=== PATIENT | male | born 1990 ===

== ENCOUNTER 2017-03-19 15:33 | Emergency (ER) | payer SELFPAY ==
[2017-03-19 15:41] VITALS: RESP 20; TEMP 98.3; O2SAT 98
[2017-03-19] MEDS ORDERED: Phenylephrine 1% Nasal Spray (15 ml) NAS STA (17:06)
[2017-03-19] MEDS ORDERED: Phenylephrine 1% Nasal Spray (15 ml) ONE (17:11)
[2017-03-19 17:17] LABS: BASO % 0.7 % (0.0-2.0); EOS % 0.1 % (0.0-4.0); HEMATOCRIT 42.8 % (35.0-51.0); LYMPH # 0.7 K/uL (1.0-4.3); LYMPH % 10.8 % (20.0-40.0); MEAN CELL VOLUME 91.6 fL (80.0-94.0); MEAN CORPUSCULAR HEMOGLOBIN 32.5 pg (27.0-31.0); MEAN CORPUSCULAR HGB CONC 35.5 g/dL (33.0-37.0); MEAN PLATELET VOLUME 7.9 fL (7.2-11.7); MONO # 0.3 K/uL (0.0-0.8); MONO % 4.4 % (0.0-10.0); RED CELL DISTRIBUTION WIDTH 13.2 % (11.5-14.5); WHITE BLOOD COUNT 6.4 K/uL (4.8-10.8)
[2017-03-19 17:26] LABS: INR 0.9
[2017-03-19 17:28] LABS: ALB/GLOB RATIO 1.9 (1.0-2.1); ALKALINE PHOSPHATASE 92 U/L (38-126); ALT/SGPT 210 U/L (21-72); AST/SGOT 228 U/L (17-59); BILIRUBIN,TOTAL 1.2 mg/dL (0.2-1.3); BLOOD UREA NITROGEN 15 mg/dL (9-20); CALCIUM 8.8 mg/dl (8.6-10.4); CARBON DIOXIDE 28 mmol/L (22-30); CHLORIDE 92 mmol/L (98-107); GFR AFRICAN-AMERICAN > 60; GLUCOSE,RANDOM 99 mg/dL (75-110); POTASSIUM 4.2 mmol/L (3.6-5.2); SODIUM 130 mmol/L (132-148); TOTAL PROTEIN 7.1 g/dL (6.3-8.3)
[2017-03-19] MEDS ORDERED: Silver Nitrate Topical - Stick TOP ONE (17:35)
--- NOTE | 2017-03-19 17:45 | C.PDOC ---
History Of Present Illness Pt c/o nose bleeds. Time Seen by Provider: 03/19/17 16:06 Chief Complaint (Nursing): ENT Problem History Per: Patient Onset/Duration Of Symptoms: Days, Intermittent Episodes Current Symptoms Are (Timing): Still Present Location Of Bleeding: Left Nare Symptoms Have Been: Episodic Severity: Moderate Anticoagulant/Antiplatlet Use?: No Recent Aspirin Use: No Additional History Per: Prior Records Past Medical History Reviewed: Historical Data, Nursing Documentation, Vital Signs Vital Signs: Last Vital Signs Temp 98.3 F 03/19/17 15:39 Pulse 89 03/19/17 15:39 Resp 20 03/19/17 17:01 BP 148/81 03/19/17 15:39 Pulse Ox 98 03/19/17 18:07 - Medical History PMH: No Chronic Diseases Family History: States: Unknown Family Hx - Social History Hx Alcohol Use: Yes (daily) Hx Substance Use: No - Immunization History Hx Tetanus Toxoid Vaccination: No Hx Influenza Vaccination: No Hx Pneumococcal Vaccination: No Review Of Systems Except As Marked, All Systems Reviewed And Found Negative. Constitutional: Negative for: Fever Respiratory: Negative for: Hemoptysis Gastrointestinal: Positive for: Vomiting. Negative for: Melena, Hematochezia, Hematemesis Musculoskeletal: Negative for: Neck Pain Skin: Negative for: Rash Neurological: Positive for: Headache. Negative for: Weakness, Numbness, Seizures Physical Exam - Physical Exam Appears: Non-toxic, No Acute Distress Skin: Normal Color, Warm, Dry, No Rash Head: Atraumatic, Normacephalic Eye(s): bilateral: Normal Inspection, PERRL, EOMI Nose: No Septal Hematoma, Other (Dry blood in left nare. No active bleeding) Throat: Normal Neck: Normal ROM, Supple Cardiovascular: Rhythm Regular Respiratory: Normal Breath Sounds, No Accessory Muscle Use Gastrointestinal/Abdominal: Soft, No Tenderness Extremity: Normal ROM Neurological/Psych: Oriented x3, Normal Motor, Normal Sensation, Other ( Slightly tremulous) ED Course And Treatment - Laboratory Results Result Diagrams: 03/19/17 17:13 03/19/17 17:13 Interpretation Of Abnormal: Elevated transaminase levels, otherwise unremarkable. O2 Sat by Pulse Oximetry: 98 Pulse Ox Interpretation: Normal Reassessment Condition: Improved Disposition Counseled Patient/Family Regarding: Studies Performed, Diagnosis, Need For Followup, Rx Given - Disposition Referrals: [facility] [Outside] Disposition: HOME/ ROUTINE Disposition Time: 18:08 Condition: IMPROVED Additional Instructions: Follow up in the clinic for further evaluation and treatment. Return to the ER if you develop worsening of symptoms or if you have any other concerns. Prescriptions: Famotidine [Pepcid] 20 mg PO BID #30 tab Instructions: Nosebleed (ED), Abuse of Alcohol (ED) Print Language: CAMBODIAN - Clinical Impression Clinical Impression: Left-sided epistaxis, Alcohol abuse Procedures - Epistaxis Control Consent Obtained: verbal consent Nostril: Left Nose Prepped With: phenylephrine Direct Inspection: anterior source identified Cautery Used: silver nitrate Patient Tolerated Procedure: well
[2017-03-19] MEDS ORDERED: Silver Nitrate Topical - Stick ONE (18:00)
[2017-03-19 18:23] VITALS: BP 137/89; PULSE 67
== END 2017-03-19 18:23 | disposition home or self-care (01) ==
LOC: C.ER 15:33
DX: R04.0 Epistaxis (principal)

== ENCOUNTER 2018-04-07 11:41 | Inpatient (IN) | payer MEDICAID ==
[2018-04-07] MEDS ORDERED: Sodium Chloride 0.9% 1,000 ML IV ONE ×2 (12:43→14:34)
[2018-04-07] MEDS ORDERED: Sodium Chloride 0.9% 1,000 ML ONE ×2 (12:55→14:41)
[2018-04-07 13:44] LABS: HEMOGLOBIN 16.1 g/dL (12.0-18.0); LYMPH # 0.6 K/uL (1.0-4.3); LYMPH % 4.2 % (20.0-40.0); MONO # 0.5 K/uL (0.0-0.8); RED CELL DISTRIBUTION WIDTH 13.1 % (11.5-14.5)
[2018-04-07 13:51] LABS: BASO % 0.3 % (0.0-2.0); MEAN CORPUSCULAR HGB CONC 35.1 g/dL (33.0-37.0); MONO % 3.5 % (0.0-10.0); NEUT # 12.2 K/uL (1.8-7.0); RBC 4.88 Mil/uL (4.40-5.90)
[2018-04-07 13:54] LABS: PLATELET COUNT 290 K/uL (130-400); WHITE BLOOD COUNT 13.3 K/uL (4.8-10.8)
[2018-04-07 14:13] LABS: BANDS 1 % (0-2); LYMPHOCYTE 3 % (20-40); MONOCYTE 2 % (0-10); NEUTROPHIL 94 % (50-75); TOTAL CELLS COUNTED 100
--- NOTE | 2018-04-07 14:18 | C.PDOC ---
History Of Present Illness 27 y/o male presents to the ER complaining of abdominal pain and vomiting which has been present for the past 2 days. Patient states that he was drinking yesterday. Patient denies having fever, chills, dysuria, and hematuria. Time Seen by Provider: 04/07/18 12:43 Chief Complaint (Nursing): Abdominal Pain History Per: Patient History/Exam Limitations: no limitations Onset/Duration Of Symptoms: Days Current Symptoms Are (Timing): Still Present Severity: Moderate Past Medical History Reviewed: Historical Data, Nursing Documentation, Vital Signs Vital Signs: Last Vital Signs Temp 98.3 F 04/07/18 12:07 Pulse 84 04/07/18 12:07 Resp 18 04/07/18 12:07 BP 134/78 04/07/18 12:07 Pulse Ox 99 04/07/18 12:07 - Medical History PMH: No Chronic Diseases Surgical History: No Surg Hx Family History: States: No Known Family Hx - Social History Hx Alcohol Use: Yes (daily) Hx Substance Use: No - Immunization History Hx Tetanus Toxoid Vaccination: No Hx Influenza Vaccination: No Hx Pneumococcal Vaccination: No Review Of Systems Except As Marked, All Systems Reviewed And Found Negative. Constitutional: Negative for: Fever, Chills Gastrointestinal: Positive for: Vomiting, Abdominal Pain Physical Exam - Physical Exam Appears: Non-toxic, No Acute Distress Skin: Normal Color, Warm, Dry Head: Atraumatic, Normacephalic Eye(s): bilateral: Normal Inspection Nose: Normal Oral Mucosa: Moist Neck: Supple Chest: Symmetrical Cardiovascular: Rhythm Regular Respiratory: Normal Breath Sounds, No Rales, No Rhonchi, No Wheezing Gastrointestinal/Abdominal: Soft, Tenderness Extremity: Normal ROM Neurological/Psych: Oriented x3, Normal Speech ED Course And Treatment - Laboratory Results Result Diagrams: 04/07/18 13:38 04/07/18 13:38 Lab Interpretation: Abnormal O2 Sat by Pulse Oximetry: 99 (RA) Pulse Ox Interpretation: Normal - CT Scan/US No standard instances Other Rad Studies (CT/US): Read By Radiologist, Radiology Report Reviewed CT/US Interpretation: FINDINGS: LOWER THORAX: Heart size is within range of normal. No significant pericardial effusion. Tiny hiatal hernia. Lung bases clear without focal consolidation effusion or basilar pneumothorax. LIVER: The liver is enlarged measuring nearly 21 cm in CC dimension. Significant fatty hepatic infiltration. No obvious hepatic mass collection or calcification. Portal and splenic veins are opacified. GALLBLADDER AND BILE DUCTS: Gallbladder is physiologically distended. No evidence of intraluminal gallbladder calculi. PANCREAS: Pancreas is enlarged body and edematous with significant infiltration changes and fluid in the peripancreatic fat. Findings are consistent with acute pancreatitis. Fluid extends inferiorly along the left para renal space abutting the posteromedial aspect of the spleen and further inferiorly along the left and paracolic gutter. Fluid is also present within the pelvis more so on the right than left.. There are also infiltration changes and possibly small amount of fluid extending towards Morison's pouch region.. No obvious loculated fluid collections identified at this time. SPLEEN: Spleen exhibits normal size and attenuation pattern. ADRENALS: There are no adrenal lesions. KIDNEYS AND URETERS: Unremarkable. No stone or hydronephrosis. BLADDER: Urinary bladder is incompletely distended which in part accounts for thick-walled appearance. Muscular hypertrophy may contribute. Urinalysis correlation recommended to exclude cystitis. REPRODUCTIVE: The prostate gland appears unremarkable. APPENDIX: Appendix not seen with complete certainty however no evidence to suggest acute appendicitis. BOWEL: Evaluation of the bowel is somewhat limited due to the lack of oral contrast material. PERITONEUM: As above. No gross free intraperitoneal air. There is a small fat containing umbilical hernia. Small fat containing bilateral inguinal hernias are present.. LYMPH NODES: Unremarkable. No enlarged lymph nodes. VASCULATURE: Unremarkable. No aortic aneurysm. No aortic atherosclerotic calcification or mural plaque present. BONES: No fracture or destructive lesion. Osseous structures appear grossly intact. OTHER FINDINGS: None. IMPRESSION: Findings are consistent with acute pancreatitis with associated fluid infiltration changes in the peripancreatic mesentery with extension of these changes into the left para renal space further inferiorly into the left paracolic gutter as well as into the region of Smith's pouch. Fluid is also present within the pelvis right greater than left. Hepatomegaly with marked fatty hepatic infiltration. Progress Note: Treated with IVF NSS, toradol and morphine. On re-evaluation abdomen soft Reassessment Condition: Improved - Physician Consult Information Physician Contacted: Henry Hill Outcome Of Conversation: admit Medical Decision Making Medical Decision Making: Plan: --Labs --UA --IV Fluids --Zofran IV --CT- Abd & Pelv. Disposition Discussed With : Henry Hill Doctor Will See Patient In The: Hospital - Disposition Disposition: HOSPITALIZED Disposition Time: 16:00 Condition: STABLE - POA Present On Arrival: None - Clinical Impression Clinical Impression: Abdominal pain, Acute pancreatitis - PA / SALES VENDOR / Resident Statement MD/DO has reviewed & agrees with the documentation as recorded. - Scribe Statement The provider has reviewed the documentation as recorded by the Alessandro Trevizo Provider Attestation All medical record entries made by the Scribe were at my direction and personally dictated by me. I have reviewed the chart and agree that the record accurately reflects my personal performance of the history, physical exam, medical decision making, and the department course for this patient. I have also personally directed, reviewed, and agree with the discharge instructions and disposition. Decision To Admit - Pt Status Changed To: Hospital Disposition Of: Inpatient - Admit Certification Admit to Inpatient:: After my assessment, the patient will require hospitalization for at least two midnights. This is because of the severity of symptoms shown, intensity of services needed, and/or the medical risk in this patient being treated as an outpatient. - InPatient: Physician Admission Certification:: Acute Pancreatitis - . Bed Request Type: Regular Patient Diagnosis: Abdominal pain, Acute pancreatitis
[2018-04-07 14:19] LABS: PLATELET ESTIMATE NORMAL (NORMAL)
[2018-04-07 14:22] LABS: ALB/GLOB RATIO 1.5 (1.0-2.1); ALBUMIN 5.2 g/dL (3.5-5.0); ALT/SGPT 175 U/L (21-72); AST/SGOT 339 U/L (17-59); BLOOD UREA NITROGEN 9 mg/dL (9-20); CALCIUM 9.6 mg/dl (8.6-10.4); GFR NON-AFRICAN AMERICAN > 60
[2018-04-07 14:45] LABS: GRANULAR CAST 2 /lpf (0-1); SQUAMOUS EPITHIAL < 1 /hpf (0-5); URINE BACTERIA RARE (<OCC); URINE BILIRUBIN NEGATIVE (NEGATIVE); URINE BLOOD 1+ (NEGATIVE); URINE CLARITY Clear (Clear); URINE COLOR Amber (YELLOW); URINE GLUCOSE (UA) NORMAL (Normal); URINE LEUKOCYTE ESTERASE NEG Leu/uL (Negative); URINE PROTEIN 2+ mg/dL (NEGATIVE)
[2018-04-07 14:52] LABS: LIPASE 7806 U/L (23-300)
--- NOTE | 2018-04-07 16:25 | CP.PCM.HP ---
History of Present Illness - History of Present Illness History of Present Illness: Medicine H&P CC: abdominal pain and vomiting x6hrs HPI: This 27 y/o male with no PMHx - presents to the [facility] ER complaining of abdominal pain and vomiting since this morning. Patient admits to drinking 6 beers and taking 4 shots of tequila over a 2hr period between 5pm and 7pm yesterday. He then went home, watched TV, and fell asleep without incident. At roughly 7am this morning, he awoke feeling nauseous, and vomited food contents 2x between 7 and 8am. Between 8am and 2pm he vomited 5 more times, consistent with yellow/green bile. He has not been able to keep food down, and would vomit any water he attempted to drink. He came to the ED at 2pm because he developed 10/10 sharp abdominal pain that shoots through him into his back. This is his second such episode over the past month. He has been consuming 6beers and 4shots of tequilla, twice per week, for roughly the past 4 years. He is not sure if he has a problem. He denies fever, chills, chest pain, SOB, d/c, dysuria, hematuria, hematemesis, hematoscezia, LE edema, or any additional acute complaints. PMHx: none PSHx: none Meds: none Allergies: NKDA FamHx: Mom 48yo w/HTN; Dad 50yo w/ GERD SocHx: ETOH- drink 6beers and 4shots of tequilla 2x/wk (for the past 4 years). Denies tobacco or illicit drug use. 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 PMD: none Review of Systems: -Gen: No fever, No chills, No headache, + lethargy, No weakness. -HEENT: No dizziness, No change in vision, No change in hearing, No sore throat, No dysphagia, No nasal congestion, No mucous. -Cardio: No chest pain, No palpitations, No lower extremity edema, No orthopnea. -Resp: No cough, No dyspnea, No hemoptysis, No wheezing, No pain on inspiration . -GI: + abdominal pain (radiating into back), + nausea/vomiting, No diarrhea/constipation, No hematochezia, No hematemesis. -: No dysuria, No urinary freq, No incontinence, No hematuria, No change in urinary stream. -MSK: + back pain, No muscle weakness, No radiating pain. -Skin: No itching, No rash, No lesions. -Neuro: No confusion, No numbness, No tingling, No focal weakness, No radicular pain, No syncope. -Psych: No anxiety, No depression, No H/I, No S/I, No hallucinations. Present on Admission - Present on Admission Any Indicators Present on Admission: No Past Patient History - Past Social History Smoking Status: Never Smoked - HEENT Hx Epistaxis: Yes - PSYCHIATRIC Hx Substance Use: No - SURGICAL HISTORY Hx Surgeries: No - ANESTHESIA Hx Anesthesia: No Meds Allergies/Adverse Reactions: Allergies Allergy/AdvReac Type Severity Reaction Status Date / Time spicy food Allergy Uncoded 03/19/17 15:41 Physical Exam - Additional Findings Additional findings: - Constitutional Appears: Non-toxic, No Acute Distress - Head Exam Head Exam: ATRAUMATIC, NORMAL INSPECTION - Eye Exam Eye Exam: EOMI, Normal appearance - ENT Exam ENT Exam: Mucous Membranes Dry - Neck Exam Neck Exam: absent: Tenderness, Lymphadenopathy - Respiratory Exam Respiratory Exam: NORMAL BREATHING PATTERN. absent: Rales, Wheezes - Cardiovascular Exam Cardiovascular Exam: Regular Rate, +S1, +S2 - GI/Abdominal Exam GI & Abdominal Exam: Soft, Decreased Bowel Sounds, +Tenderness (diffuse abdominal tenderness likely 2/2 vomiting, with sharp mid-epigastric TTP, with radiation into the back). - Extremities Exam Extremities Exam: Full ROM, Normal Inspection. absent: Pedal Edema, Tenderness - Back Exam Back Exam: NORMAL INSPECTION. absent: CVA tenderness (L), CVA tenderness (R) - Neurological Exam Neurological Exam: Alert, Awake, Oriented x3 - Psychiatric Exam Psychiatric exam: Normal Affect, Depressed Mood - Skin Skin Exam: Dry, Intact, Normal Color, Warm Results - Vital Signs Recent Vital Signs: Last Vital Signs Temp 99 F 04/07/18 15:20 Pulse 85 04/07/18 15:20 Resp 18 04/07/18 15:20 BP 141/81 04/07/18 15:20 Pulse Ox 100 04/07/18 15:20 - Labs Result Diagrams: 04/07/18 13:38 04/07/18 13:38 Labs: Laboratory Results - last 24 hr 04/07/18 04/07/18 04/07/18 13:38 13:38 14:26 WBC 13.3 H D RBC 4.88 Hgb 16.1 Hct 45.9 MCV 94.0 D MCH 33.0 H MCHC 35.1 RDW 13.1 Plt Count 290 D MPV 8.0 Neut % (Auto) 92.0 H Lymph % (Auto) 4.2 L Johnson % (Auto) 3.5 Eos % (Auto) 0.0 Baso % (Auto) 0.3 Neut # (Auto) 12.2 H Lymph # (Auto) 0.6 L Johnson # (Auto) 0.5 Eos # (Auto) 0.0 Baso # (Auto) 0.0 Neutrophils % (Manual) 94 H Band Neutrophils % 1 Lymphocytes % (Manual) 3 L Monocytes % (Manual) 2 Platelet Estimate Normal RBC Morphology Normal Sodium 137 Potassium 3.7 Chloride 96 L Carbon Dioxide 28 Anion Gap 16 BUN 9 Creatinine 0.8 Est GFR ( Amer) > 60 Est GFR (Non-Af Amer) > 60 Random Glucose 136 H D Calcium 9.6 Total Bilirubin 0.8 AST 339 H D ALT 175 H Alkaline Phosphatase 146 H D Total Protein 8.7 H Albumin 5.2 H Globulin 3.5 Albumin/Globulin Ratio 1.5 Lipase 7806 H Urine Color Yeny Urine Clarity Clear Urine pH 5.0 Ur Specific [place] 1.024 Urine Protein 2+ H Urine Glucose (UA) Normal Urine Ketones Negative Urine Blood 1+ H Urine Nitrate Negative Urine Bilirubin Negative Urine Urobilinogen 2.0 Ur Leukocyte Esterase Neg Urine WBC (Auto) 2 Urine RBC (Auto) 5 H Ur Squamous Epith Cells < 1 Urine Bacteria Rare Hyaline Casts 6-10 H Granular Casts (Auto) 2 Assessment & Plan - Assessment and Plan (Free Text) Assessment: Acute Pancreatitis -2/2 ETOH abuse ED course: patient received NS x2L, Zofran 4mg IVP once, Toradol 30mg IVP once, and Morphine 4mg IVP once. NPO Lactated ringers 200cc/hr Morphine) 4 mg IVP Q4 PRN sever pain Zofran Inj) 4 mg IVP Q6H PRN nausea f/u Abd CT- official read GI consult, Dr. Bradley, help appreciated Calculate Ransons criteria once LDH results and fluid needs are determined (48hrs) ETOH Abuse pt admits to drinking 6beers and 4shot of tequilla 2x/wk for the past 4 years CAGE score of 2pts (+Guilt, +need to cut down on drinking) Ativan) 1 mg IVP Q4H PRN seizure activity Thiamine, FA CIWA protocol aspiration precautions seizure precautions neuro checks Prophylaxis SCDs Protonix 40mg IVP qD Case discussed with Dr. Hill - Date & Time Date: 04/07/18 Time: 16:19
--- NOTE | 2018-04-07 17:14 | CT ---
Date of service: 04/07/2018 PROCEDURE: CT Abdomen and Pelvis. HISTORY: Pain and weakness. COMPARISON: None. TECHNIQUE: Contiguous axial images of the abdomen and pelvis performed without oral or intravenous contrast material. Additional 2D sagittal and coronal reformats generated. Radiation dose: Total exam DLP = 556.96 mGy-cm. This CT exam was performed using one or more of the following dose reduction techniques: Automated exposure control, adjustment of the mA and/or kV according to patient size, and/or use of iterative reconstruction technique. FINDINGS: LOWER THORAX: Heart size is within range of normal. No significant pericardial effusion. Tiny hiatal hernia. Lung bases clear without focal consolidation effusion or basilar pneumothorax. LIVER: The liver is enlarged measuring nearly 21 cm in CC dimension. Significant fatty hepatic infiltration. No obvious hepatic mass collection or calcification. Portal and splenic veins are opacified. GALLBLADDER AND BILE DUCTS: Gallbladder is physiologically distended. No evidence of intraluminal gallbladder calculi. PANCREAS: Pancreas is enlarged body and edematous with significant infiltration changes and fluid in the peripancreatic fat. Findings are consistent with acute pancreatitis. Fluid extends inferiorly along the left para renal space abutting the posteromedial aspect of the spleen and further inferiorly along the left and paracolic gutter. Fluid is also present within the pelvis more so on the right than left.. There are also infiltration changes and possibly small amount of fluid extending towards Morison's pouch region.. No obvious loculated fluid collections identified at this time. SPLEEN: Spleen exhibits normal size and attenuation pattern. ADRENALS: There are no adrenal lesions. KIDNEYS AND URETERS: Unremarkable. No stone or hydronephrosis. BLADDER: Urinary bladder is incompletely distended which in part accounts for thick-walled appearance. Muscular hypertrophy may contribute. Urinalysis correlation recommended to exclude cystitis. REPRODUCTIVE: The prostate gland appears unremarkable APPENDIX: Appendix not seen with complete certainty however no evidence to suggest acute appendicitis. BOWEL: Evaluation of the bowel is somewhat limited due to the lack of oral contrast material. PERITONEUM: As above. No gross free intraperitoneal air. There is a small fat containing umbilical hernia. Small fat containing bilateral inguinal hernias are present.. LYMPH NODES: Unremarkable. No enlarged lymph nodes. VASCULATURE: Unremarkable. No aortic aneurysm. No aortic atherosclerotic calcification or mural plaque present. BONES: No fracture or destructive lesion. Osseous structures appear grossly intact OTHER FINDINGS: None. IMPRESSION: Findings are consistent with acute pancreatitis with associated fluid infiltration changes in the peripancreatic mesentery with extension of these changes into the left para renal space further inferiorly into the left paracolic gutter as well as into the region of Smith's pouch. Fluid is also present within the pelvis right greater than left. Hepatomegaly with marked fatty hepatic infiltration.
[2018-04-07] MEDS ORDERED: Morphine 4 MG/ML VIAL ONE (17:45)
[2018-04-07] MEDS ORDERED: Lactated Ringer's 1,000 ML ONE (17:46)
[2018-04-07] MEDS: Lactated Ringer's 1,000 ML IV SCH ×2 (17:55→22:43)
[2018-04-07] MEDS ORDERED: Thiamine 100 mg/ml Inj IV ONE (18:30)
[2018-04-08] MEDS ORDERED: Lactated Ringer's 1,000 ML ONE (03:18)
[2018-04-08] MEDS: Lactated Ringer's 1,000 ML IV SCH ×3 (03:19→20:39)
[2018-04-08] MEDS: Morphine 4 MG/ML VIAL IVP PRN ×3 (03:24→20:12)
[2018-04-08] MEDS ORDERED: Morphine 4 MG/ML VIAL ONE (03:24)
[2018-04-08 04:11] LABS: BASO % 0.3 % (0.0-2.0); EOS % 0.5 % (0.0-4.0); HEMOGLOBIN 14.1 g/dL (12.0-18.0); LYMPH # 0.4 K/uL (1.0-4.3); LYMPH % 6.7 % (20.0-40.0); MEAN CELL VOLUME 93.6 fL (80.0-94.0); MEAN CORPUSCULAR HEMOGLOBIN 32.6 pg (27.0-31.0); MEAN CORPUSCULAR HGB CONC 34.8 g/dL (33.0-37.0); MEAN PLATELET VOLUME 7.8 fL (7.2-11.7); MONO # 0.4 K/uL (0.0-0.8); MONO % 5.4 % (0.0-10.0); NEUT # 5.9 K/uL (1.8-7.0); NEUT % 87.1 % (50.0-75.0); PLATELET COUNT 174 K/uL (130-400); RBC 4.34 Mil/uL (4.40-5.90); RED CELL DISTRIBUTION WIDTH 12.8 % (11.5-14.5); WHITE BLOOD COUNT 6.7 K/uL (4.8-10.8)
[2018-04-08 04:46] LABS: ALB/GLOB RATIO 1.6 (1.0-2.1); ALBUMIN 3.9 g/dL (3.5-5.0); ALT/SGPT 105 U/L (21-72); AST/SGOT 134 U/L (17-59); BLOOD UREA NITROGEN 12 mg/dL (9-20); CALCIUM 8.3 mg/dl (8.6-10.4); GFR NON-AFRICAN AMERICAN > 60
--- NOTE | 2018-04-08 08:02 | CP.PCM.CON ---
<Arturo Mcmanus - Last Filed: 04/08/18 10:33> History of Present Illness - History of Present Illness History of Present Illness: GI Fellow PGY4, Progress note. Greg Underwood is a 27M presenting with acute abdominal pain and vomiting x 1 day. Patient was previously healthy except for excessive alcohol intake. Patient states the pain is severe, started in the front middle and radiated to the back. The pain has improved since being in the hospital. He has had 1 other episode similar to this but not as severe a few weeks ago. He had associated non-bloody emesis yesterday which has resolved, ~8 episodes. He was drinking heavily the night before the pain started, roughly 6 beers, 4 shots of alcohol. He denies history of trauma or gallstones. PMHx - as above. PSHx - none FMHx - Mom had pancreatitis, dad had gastritis. No GI related cancers. No liver diseases. SocHx - Alcohol as above. Denies smoking, drugs. 12pt ROS completed and negative except for above. Past Patient History - Past Social History Smoking Status: Never Smoked - HEENT Hx Epistaxis: Yes - PSYCHIATRIC Hx Substance Use: No - SURGICAL HISTORY Hx Surgeries: No - ANESTHESIA Hx Anesthesia: No Meds Allergies/Adverse Reactions: Allergies Allergy/AdvReac Type Severity Reaction Status Date / Time spicy food Allergy Uncoded 03/19/17 15:41 - Medications Medications: Current Medications Lactated Ringer's (Lactated Ringer's) 1,000 mls @ 200 mls/hr IV .Q5H [facility] Last Admin: 04/08/18 03:19 Dose: 200 mls/hr Folic Acid 1 mg/ Sodium (Chloride) 100.2 mls @ 60 mls/hr IV Q24H [facility] Last Admin: 04/07/18 19:50 Dose: 60 mls/hr Lorazepam (Ativan) 1 mg IVP Q4H PRN PRN Reason: Seizure activity Last Admin: 04/07/18 17:51 Dose: 1 mg Morphine Sulfate (Morphine) 4 mg IVP Q4 PRN PRN Reason: Pain, severe (8-10) Last Admin: 04/08/18 03:24 Dose: 4 mg Ondansetron HCl (Zofran Inj) 4 mg IVP Q6H PRN PRN Reason: Nausea/Vomiting Pantoprazole Sodium (Protonix Inj) 40 mg IVP DAILY [facility] Thiamine HCl (Vitamin B1 Inj) 100 mg IV DAILY [facility] Physical Exam - Constitutional Appears: Well, Non-toxic - Head Exam Head Exam: ATRAUMATIC, NORMAL INSPECTION - Eye Exam Eye Exam: EOMI, Normal appearance - ENT Exam ENT Exam: Mucous Membranes Moist, Normal Exam - Respiratory Exam Respiratory Exam: Clear to Auscultation Bilateral, NORMAL BREATHING PATTERN - Cardiovascular Exam Cardiovascular Exam: REGULAR RHYTHM, +S1, +S2 - GI/Abdominal Exam GI & Abdominal Exam: Normal Bowel Sounds, Organomegaly, Soft. absent: Ten derness - Extremities Exam Extremities exam: Positive for: normal inspection. Negative for: pedal edema - Neurological Exam Neurological exam: Alert, CN II-XII Intact, Oriented x3 - Psychiatric Exam Psychiatric exam: Normal Affect, Normal Mood - Skin Skin Exam: Normal Color, Warm Results - Vital Signs Recent Vital Signs: Last Vital Signs Temp 98.7 F 04/08/18 06:44 Pulse 78 04/08/18 06:44 Resp 22 04/08/18 06:44 BP 122/83 04/08/18 06:44 Pulse Ox 98 04/08/18 06:44 - Labs Result Diagrams: 04/08/18 04:07 04/08/18 04:07 Labs: Laboratory Results - last 24 hr 04/07/18 04/07/18 04/07/18 13:38 13:38 14:26 WBC 13.3 H D RBC 4.88 Hgb 16.1 Hct 45.9 MCV 94.0 D MCH 33.0 H MCHC 35.1 RDW 13.1 Plt Count 290 D MPV 8.0 Neut % (Auto) 92.0 H Lymph % (Auto) 4.2 L [place] % (Auto) 3.5 Eos % (Auto) 0.0 Baso % (Auto) 0.3 Neut # (Auto) 12.2 H Lymph # (Auto) 0.6 L [place] # (Auto) 0.5 Eos # (Auto) 0.0 Baso # (Auto) 0.0 Neutrophils % (Manual) 94 H Band Neutrophils % 1 Lymphocytes % (Manual) 3 L Monocytes % (Manual) 2 Platelet Estimate Normal RBC Morphology Normal Sodium 137 Potassium 3.7 Chloride 96 L Carbon Dioxide 28 Anion Gap 16 BUN 9 Creatinine 0.8 Est GFR ( Amer) > 60 Est GFR (Non-Af Amer) > 60 Random Glucose 136 H D Calcium 9.6 Phosphorus Magnesium Total Bilirubin 0.8 AST 339 H D ALT 175 H Alkaline Phosphatase 146 H D Lactate Dehydrogenase Total Protein 8.7 H Albumin 5.2 H Globulin 3.5 Albumin/Globulin Ratio 1.5 Lipase 7806 H Urine Color Yeny Urine Clarity Clear Urine pH 5.0 Ur Specific [place] 1.024 Urine Protein 2+ H Urine Glucose (UA) Normal Urine Ketones Negative Urine Blood 1+ H Urine Nitrate Negative Urine Bilirubin Negative Urine Urobilinogen 2.0 Ur Leukocyte Esterase Neg Urine WBC (Auto) 2 Urine RBC (Auto) 5 H Ur Squamous Epith Cells < 1 Urine Bacteria Rare Hyaline Casts 6-10 H Granular Casts (Auto) 2 04/07/18 04/08/18 04/08/18 18:14 04:07 04:07 WBC 6.7 RBC 4.34 L Hgb 14.1 D Hct 40.6 MCV 93.6 MCH 32.6 H MCHC 34.8 RDW 12.8 Plt Count 174 D MPV 7.8 Neut % (Auto) 87.1 H Lymph % (Auto) 6.7 L [place] % (Auto) 5.4 Eos % (Auto) 0.5 Baso % (Auto) 0.3 Neut # (Auto) 5.9 Lymph # (Auto) 0.4 L [place] # (Auto) 0.4 Eos # (Auto) 0.0 Baso # (Auto) 0.0 Neutrophils % (Manual) Band Neutrophils % Lymphocytes % (Manual) Monocytes % (Manual) Platelet Estimate RBC Morphology Sodium 134 Potassium 3.7 Chloride 100 Carbon Dioxide 24 Anion Gap 14 BUN 12 Creatinine 0.7 L Est GFR ( Amer) > 60 Est GFR (Non-Af Amer) > 60 Random Glucose 101 D Calcium 8.3 L Phosphorus 4.0 Magnesium 1.5 L Total Bilirubin 1.5 H AST 134 H D ALT 105 H D Alkaline Phosphatase 87 Lactate Dehydrogenase 1017 H Total Protein 6.2 L Albumin 3.9 Globulin 2.3 Albumin/Globulin Ratio 1.6 Lipase Urine Color Urine Clarity Urine pH Ur Specific [place] Urine Protein Urine Glucose (UA) Urine Ketones Urine Blood Urine Nitrate Urine Bilirubin Urine Urobilinogen Ur Leukocyte Esterase Urine WBC (Auto) Urine RBC (Auto) Ur Squamous Epith Cells Urine Bacteria Hyaline Casts Granular Casts (Auto) Assessment & Plan - Assessment and Plan (Free Text) Assessment: #Acute pancreatitis, likely alcohol #Elevated liver tests, possibly alcoholic hepatitis #Alcohol abuse PLAN: -CT reviewed: hepatamegaly, fatty liver, no gallstones. Acute pancreatitis. -Obtain U/S to r/o gallstone (a more sensitive test) -DF score: obtain INR... likely low, low suspicion for need for steroids. -Start CLD, advance slowly. Make NPO if leads to severe pain or vomiting. -Continue LR IVF -CIWA, thiamine, folate -Hepatitis panel -Must stop alcohol completely, this is causing a life-threatening condition. Patient understands. Case discussed with Dr. Bradley, see attestation. - Date & Time Date: 04/08/18 Time: 08:03 <Yon Bradley - Last Filed: 04/08/18 11:17> Meds - Medications Medications: Current Medications Lactated Ringer's (Lactated Ringer's) 1,000 mls @ 200 mls/hr IV .Q5H [facility] Last Admin: 04/08/18 03:19 Dose: 200 mls/hr Folic Acid 1 mg/ Sodium (Chloride) 100.2 mls @ 60 mls/hr IV Q24H [facility] Last Admin: 04/07/18 19:50 Dose: 60 mls/hr Lorazepam (Ativan) 1 mg IVP Q4H PRN PRN Reason: Seizure activity Last Admin: 04/07/18 17:51 Dose: 1 mg Morphine Sulfate (Morphine) 4 mg IVP Q4 PRN PRN Reason: Pain, severe (8-10) Last Admin: 04/08/18 03:24 Dose: 4 mg Ondansetron HCl (Zofran Inj) 4 mg IVP Q6H PRN PRN Reason: Nausea/Vomiting Pantoprazole Sodium (Protonix Inj) 40 mg IVP DAILY [facility] Last Admin: 04/08/18 10:15 Dose: 40 mg Thiamine HCl (Vitamin B1 Inj) 100 mg IV DAILY [facility] Last Admin: 04/08/18 10:15 Dose: 100 mg Results - Vital Signs Recent Vital Signs: Last Vital Signs Temp 99.0 F 04/08/18 07:35 Pulse 80 04/08/18 07:35 Resp 17 04/08/18 07:35 BP 145/89 04/08/18 07:35 Pulse Ox 99 04/08/18 07:35 - Labs Result Diagrams: 04/08/18 04:07 04/08/18 04:07 Labs: Laboratory Results - last 24 hr 04/07/18 04/07/18 04/07/18 13:38 13:38 14:26 WBC 13.3 H D RBC 4.88 Hgb 16.1 Hct 45.9 MCV 94.0 D MCH 33.0 H MCHC 35.1 RDW 13.1 Plt Count 290 D MPV 8.0 Neut % (Auto) 92.0 H Lymph % (Auto) 4.2 L [place] % (Auto) 3.5 Eos % (Auto) 0.0 Baso % (Auto) 0.3 Neut # (Auto) 12.2 H Lymph # (Auto) 0.6 L [place] # (Auto) 0.5 Eos # (Auto) 0.0 Baso # (Auto) 0.0 Neutrophils % (Manual) 94 H Band Neutrophils % 1 Lymphocytes % (Manual) 3 L Monocytes % (Manual) 2 Myelocytes % Platelet Estimate Normal RBC Morphology Normal PT INR Sodium 137 Potassium 3.7 Chloride 96 L Carbon Dioxide 28 Anion Gap 16 BUN 9 Creatinine 0.8 Est GFR ( Amer) > 60 Est GFR (Non-Af Amer) > 60 Random Glucose 136 H D Calcium 9.6 Phosphorus Magnesium Total Bilirubin 0.8 AST 339 H D ALT 175 H Alkaline Phosphatase 146 H D Lactate Dehydrogenase Total Protein 8.7 H Albumin 5.2 H Globulin 3.5 Albumin/Globulin Ratio 1.5 Lipase 7806 H Urine Color Yeny Urine Clarity Clear Urine pH 5.0 Ur Specific [place] 1.024 Urine Protein 2+ H Urine Glucose (UA) Normal Urine Ketones Negative Urine Blood 1+ H Urine Nitrate Negative Urine Bilirubin Negative Urine Urobilinogen 2.0 Ur Leukocyte Esterase Neg Urine WBC (Auto) 2 Urine RBC (Auto) 5 H Ur Squamous Epith Cells < 1 Urine Bacteria Rare Hyaline Casts 6-10 H Granular Casts (Auto) 2 Hep Bs Antigen 04/07/18 04/08/18 04/08/18 18:14 04:07 04:07 WBC 6.7 RBC 4.34 L Hgb 14.1 D Hct 40.6 MCV 93.6 MCH 32.6 H MCHC 34.8 RDW 12.8 Plt Count 174 D MPV 7.8 Neut % (Auto) 87.1 H Lymph % (Auto) 6.7 L [place] % (Auto) 5.4 Eos % (Auto) 0.5 Baso % (Auto) 0.3 Neut # (Auto) 5.9 Lymph # (Auto) 0.4 L [place] # (Auto) 0.4 Eos # (Auto) 0.0 Baso # (Auto) 0.0 Neutrophils % (Manual) 86 H Band Neutrophils % Lymphocytes % (Manual) 6 L Monocytes % (Manual) 7 Myelocytes % 1 H Platelet Estimate Normal RBC Morphology PT INR Sodium 134 Potassium 3.7 Chloride 100 Carbon Dioxide 24 Anion Gap 14 BUN 12 Creatinine 0.7 L Est GFR ( Amer) > 60 Est GFR (Non-Af Amer) > 60 Random Glucose 101 D Calcium 8.3 L Phosphorus 4.0 Magnesium 1.5 L Total Bilirubin 1.5 H AST 134 H D ALT 105 H D Alkaline Phosphatase 87 Lactate Dehydrogenase 1017 H Total Protein 6.2 L Albumin 3.9 Globulin 2.3 Albumin/Globulin Ratio 1.6 Lipase Urine Color Urine Clarity Urine pH Ur Specific [place] Urine Protein Urine Glucose (UA) Urine Ketones Urine Blood Urine Nitrate Urine Bilirubin Urine Urobilinogen Ur Leukocyte Esterase Urine WBC (Auto) Urine RBC (Auto) Ur Squamous Epith Cells Urine Bacteria Hyaline Casts Granular Casts (Auto) Hep Bs Antigen 04/08/18 04/08/18 10:10 10:10 WBC RBC Hgb Hct MCV MCH MCHC RDW Plt Count MPV Neut % (Auto) Lymph % (Auto) [place] % (Auto) Eos % (Auto) Baso % (Auto) Neut # (Auto) Lymph # (Auto) [place] # (Auto) Eos # (Auto) Baso # (Auto) Neutrophils % (Manual) Band Neutrophils % Lymphocytes % (Manual) Monocytes % (Manual) Myelocytes % Platelet Estimate RBC Morphology PT 11.5 INR 1.1 Sodium Potassium Chloride Carbon Dioxide Anion Gap BUN Creatinine Est GFR ( Amer) Est GFR (Non-Af Amer) Random Glucose Calcium Phosphorus Magnesium Total Bilirubin AST ALT Alkaline Phosphatase Lactate Dehydrogenase Total Protein Albumin Globulin Albumin/Globulin Ratio Lipase Urine Color Urine Clarity Urine pH Ur Specific [place] Urine Protein Urine Glucose (UA) Urine Ketones Urine Blood Urine Nitrate Urine Bilirubin Urine Urobilinogen Ur Leukocyte Esterase Urine WBC (Auto) Urine RBC (Auto) Ur Squamous Epith Cells Urine Bacteria Hyaline Casts Granular Casts (Auto) Hep Bs Antigen Negative Attending/Attestation - Attestation I have personally seen and examined this patient.: Yes I have fully participated in the care of the patient.: Yes I have reviewed all pertinent clinical information: Yes Notes (Text): 04/08/18 11:13 I have seen and examined patient with GI fellow. Agree with above documentation with the following additions. In brief, this is a 27 year old male with history of ETOH abuse who presents to hospital with complaint of progressive abdominal pain and vomiting for past 2 days. He describes sharp epigastric pain, 10/10 intensity radiating to back that was associated with multiple episodes of non- bloody emesis yesterday. He reports frequent excessive ETOH use for the past 4 years, most recently drank 6 beers and a few shots prior to symptom onset. He denies fever/chills, weight loss, rectal bleeding, jaundice, pruritis, or change in bowel habits. No prior endoscopic evaluation. Abdominal pain, vomiting Acute ETOH induced pancreatitis Acute ETOH hepatitis Abdominal US shows normal caliber CBD, fatty liver - Liquid diet as tolerated - Continue with IVF hydration, supportive care - Anti-emetic therapy PRN - ETOH cessation counseling - Continue to monitor LFTs, obtain viral hepatitis panel
[2018-04-08 08:28] LABS: LYMPHOCYTE 6 % (20-40); MONOCYTE 7 % (0-10); MYELOCYTE 1 % (0-0); NEUTROPHIL 86 % (50-75); TOTAL CELLS COUNTED 100
[2018-04-08 08:29] LABS: PLATELET ESTIMATE NORMAL (NORMAL)
[2018-04-08] MEDS: Thiamine 100 mg/ml Inj IV SCH (10:15)
--- NOTE | 2018-04-08 10:16 | US ---
Abdominal ultrasound HISTORY: Pancreatitis. COMPARISON: 04/07/2018 TECHNIQUE: Real-time sonography was performed through the abdomen. FINDINGS: LIVER: Enlarged measuring 19.7 centimeters in length. Increased echogenicity of the hepatic parenchymal cortex suggestive for fatty infiltration versus hepatic parenchymal disease. Clinical correlation. Gallbladder: No calculi or sludge. Normal wall thickness of 2.8 millimeters. No gross wall edema. Negative sonographic Howe's sign. Common bile duct measures 3.2 millimeters, within normal limits. Limited visualization of the pancreas. Heterogeneous appearance of the visualized pancreas consistent with the known pancreatitis. Spleen is prominent measuring up to 13.9 centimeters in length. Visualized aorta and IVC are grossly preserved. Right kidney: 9.7 x 4.1 x 4.9 centimeters. No calculi or hydronephrosis. Left Kidney: 11.4 x 6.7 x 5.8 centimeters. No calculi or hydronephrosis. Impression: 1. Enlarged liver measuring up to 19.7 centimeters in length with associated increased echogenicity of the hepatic parenchymal cortex suggestive for fatty infiltration versus hepatic parenchymal disease. Clinical correlation. 2. Heterogeneous echotexture of the visualized pancreas consistent with the known acute pancreatitis. Otherwise limited evaluation of the pancreas. 3. Splenomegaly measuring up 13.9 centimeters in length.
[2018-04-08 10:27] LABS: INR 1.1; PROTHROMBIN TIME 11.5 SECONDS (9.7-12.2)
[2018-04-08 11:12] LABS: HEPATITIS B SURFACE AG Negative (NEGATIVE)
[2018-04-08 11:19] LABS: HEPATITIS A IGM NEGATIVE (NEGATIVE); HEPATITIS B CORE AB NEGATIVE (NEGATIVE)
--- NOTE | 2018-04-08 11:34 | CP.PCM.PN ---
<Maritza Courtney - Last Filed: 04/08/18 11:39> Subjective - Date & Time of Evaluation Date of Evaluation: 04/08/18 Time of Evaluation: 11:30 - Subjective Subjective: Maritza Courtney PGY1 Progress Note for Dr. Salinas Pt was examined at bedside this morning. He reports mild improvement in his abdominal pain. He denies any further episodes of nausea or vomiting. When questioned regarding drinking, he reports heavy drinking twice a week, which he does to help himself feel good and have fun. He reports wanting to live a long life, and understands dangers of alcohol to his health. Pt reports going through withdrawal in the past, but denies any current fatigue or tremors, which are his typical withdrawal symptoms. Pt denies fever, chills, shortness of breath, diarrhea, dysuria. Objective - Vital Signs/Intake and Output Vital Signs (last 24 hours): Temp Pulse Resp BP Pulse Ox 99.5 F 77 16 145/91 H 97 04/08/18 11:12 04/08/18 11:12 04/08/18 11:12 04/08/18 11:12 04/08/18 11:12 - Medications Medications: Current Medications Lactated Ringer's (Lactated Ringer's) 1,000 mls @ 200 mls/hr IV .Q5H [facility] Last Admin: 04/08/18 03:19 Dose: 200 mls/hr Folic Acid 1 mg/ Sodium (Chloride) 100.2 mls @ 60 mls/hr IV Q24H [facility] Last Admin: 04/07/18 19:50 Dose: 60 mls/hr Lorazepam (Ativan) 1 mg IVP Q4H PRN PRN Reason: Seizure activity Last Admin: 04/07/18 17:51 Dose: 1 mg Morphine Sulfate (Morphine) 4 mg IVP Q4 PRN PRN Reason: Pain, severe (8-10) Last Admin: 04/08/18 03:24 Dose: 4 mg Ondansetron HCl (Zofran Inj) 4 mg IVP Q6H PRN PRN Reason: Nausea/Vomiting Pantoprazole Sodium (Protonix Inj) 40 mg IVP DAILY [facility] Last Admin: 04/08/18 10:15 Dose: 40 mg Thiamine HCl (Vitamin B1 Inj) 100 mg IV DAILY [facility] Last Admin: 04/08/18 10:15 Dose: 100 mg - Labs Labs: 04/08/18 04:07 04/08/18 04:07 PT 11.5 SECONDS (9.7-12.2) 04/08/18 10:10 INR 1.1 04/08/18 10:10 - Constitutional Appears: Well, No Acute Distress - Head Exam Head Exam: ATRAUMATIC, NORMOCEPHALIC - Eye Exam Eye Exam: EOMI, PERRL Pupil Exam: NORMAL ACCOMODATION - ENT Exam ENT Exam: Mucous Membranes Moist - Respiratory Exam Respiratory Exam: Clear to Ausculation Bilateral, NORMAL BREATHING PATTERN. absent: Rales, Rhonchi, Wheezes, Respiratory Distress - Cardiovascular Exam Cardiovascular Exam: REGULAR RHYTHM, +S1, +S2. absent: Gallop, Rubs, Murmur - GI/Abdominal Exam GI & Abdominal Exam: Soft, Tenderness, Normal Bowel Sounds. absent: Distended, Firm Additional comments: tenderness to palpation of all four quadrants - Extremities Exam Extremities Exam: Normal Inspection. absent: Pedal Edema - Back Exam Back Exam: NORMAL INSPECTION - Neurological Exam Neurological Exam: Alert, Awake, CN II-XII Intact, Oriented x3 Additional comments: no tremors - Psychiatric Exam Psychiatric exam: Normal Affect, Normal Mood - Skin Skin Exam: Normal Color Assessment and Plan - Assessment and Plan (Free Text) Assessment: 27yo M with PMH of alcohol abuse presenting with abdominal pain, admitted for monitoring of pancreatitis. Advanced diet to clear liquids today, pt tolerating. Plan: Acute Pancreatitis - 2/2 ETOH abuse - CT abd/pel: acute pancreatitis w/ associated fluid infiltration in the peripancreatic mesentery with extension into Smith's pouch. Fluid in pelvis R>L. hepatomegaly with marked fatty infiltration - US abd: enlarged liver, increased echogenicity of the hepatic parenchymal cortex suggestive of fatty infiltration. Heterogeneous appearance of pancreas. - Lipase 7806 - LDH 1017 - Panfilo's criteria: 15% mortality - Lactated ringers @200cc/hr - Morphine 4 mg IVP Q4 PRN severe pain - Zofran 4 mg IVP Q6H PRN nausea - CLD - advance diet as tolerated - GI consulted, Dr. Bradley, recs appreciated ETOH Abuse - History of binge drinking twice/week - CAGE score of 2pts - Ativan 1 mg IVP Q4H PRN seizure activity - Thiamine, FA - CIWA protocol - aspiration precautions - seizure precautions - neuro checks - alcohol cessation counseling Prophylaxis GI: Protonix 40mg IVP DVT: SCDs CLD Pt seen and case reviewed with Dr. Salinas <Lucho Salinas - Last Filed: 04/08/18 15:39> Objective - Vital Signs/Intake and Output Vital Signs (last 24 hours): Temp Pulse Resp BP Pulse Ox 98.3 F 81 20 137/87 97 04/08/18 12:00 04/08/18 12:00 04/08/18 12:00 04/08/18 12:00 04/08/18 11:12 Intake and Output: 04/08/18 04/08/18 06:59 18:59 Intake Total 1840 Balance 1840 - Medications Medications: Current Medications Lactated Ringer's (Lactated Ringer's) 1,000 mls @ 200 mls/hr IV .Q5H [facility] Last Admin: 04/08/18 15:26 Dose: 200 mls/hr Folic Acid 1 mg/ Sodium (Chloride) 100.2 mls @ 60 mls/hr IV Q24H [facility] Last Admin: 04/07/18 19:50 Dose: 60 mls/hr Influenza Virus Vaccine (Flucelvax Quad [id number] Syr) 60 mcg IM .ONCE ONE Stop: 04/10/18 10:01 Lorazepam (Ativan) 1 mg IVP Q4H PRN PRN Reason: Seizure activity Last Admin: 04/07/18 17:51 Dose: 1 mg Morphine Sulfate (Morphine) 4 mg IVP Q4 PRN PRN Reason: Pain, severe (8-10) Last Admin: 04/08/18 15:26 Dose: 4 mg Ondansetron HCl (Zofran Inj) 4 mg IVP Q6H PRN PRN Reason: Nausea/Vomiting Pantoprazole Sodium (Protonix Inj) 40 mg IVP DAILY [facility] Last Admin: 04/08/18 10:15 Dose: 40 mg Pneumococcal Polyvalent Vaccine (Pneumovax 23 Vaccine) 0.5 ml IM .ONCE ONE Stop: 04/10/18 10:01 Thiamine HCl (Vitamin B1 Inj) 100 mg IV DAILY [facility] Last Admin: 04/08/18 10:15 Dose: 100 mg - Labs Labs: 04/08/18 04:07 04/08/18 04:07 PT 11.5 SECONDS (9.7-12.2) 04/08/18 10:10 INR 1.1 04/08/18 10:10 Attending/Attestation - Attestation I have personally seen and examined this patient.: Yes I have fully participated in the care of the patient.: Yes I have reviewed all pertinent clinical information, including history, physical exam and plan: Yes Notes (Text): 04/08/18 15:35 Medical attending: Patient was seen and examined by me. Reviewed the above note by the resident and agree with the above note The patient was not in any acute distress when I came and saw him. At that time he was still in the ER waiting for regular floor bed. He reported he still had tenderness during the examination. His LFT AST and ALT both decreased. The WBC is 6.7 We also had a long discussion with rafael to alcohol intake. 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
[2018-04-08 12:30] VITALS: RESP 20
[2018-04-08 13:12] LABS: HEPATITIS C ANTIBODY NEGATIVE (NEGATIVE)
[2018-04-09] MEDS: Morphine 4 MG/ML VIAL IVP PRN ×2 (00:23→15:41)
[2018-04-09] MEDS: Lactated Ringer's 1,000 ML IV SCH ×2 (00:26→03:58)
[2018-04-09 06:19] LABS: BASO % 0.3 % (0.0-2.0); EOS # 0.3 K/uL (0.0-0.7); EOS % 4.2 % (0.0-4.0); HEMOGLOBIN 14.1 g/dL (12.0-18.0); LYMPH # 0.6 K/uL (1.0-4.3); LYMPH % 9.7 % (20.0-40.0); MEAN CELL VOLUME 93.9 fL (80.0-94.0); MEAN CORPUSCULAR HEMOGLOBIN 32.4 pg (27.0-31.0); MEAN CORPUSCULAR HGB CONC 34.5 g/dL (33.0-37.0); MEAN PLATELET VOLUME 8.2 fL (7.2-11.7); MONO # 0.3 K/uL (0.0-0.8); MONO % 5.2 % (0.0-10.0); NEUT # 4.9 K/uL (1.8-7.0); NEUT % 80.6 % (50.0-75.0); PLATELET COUNT 146 K/uL (130-400); RBC 4.36 Mil/uL (4.40-5.90); WHITE BLOOD COUNT 6.1 K/uL (4.8-10.8)
[2018-04-09 06:42] LABS: ALB/GLOB RATIO 1.5 (1.0-2.1); ALT/SGPT 82 U/L (21-72); AST/SGOT 91 U/L (17-59); BLOOD UREA NITROGEN 6 mg/dL (9-20); CALCIUM 8.8 mg/dl (8.6-10.4); GFR NON-AFRICAN AMERICAN > 60
--- NOTE | 2018-04-09 08:38 | CP.PCM.PN ---
<Arturo Mcmanus - Last Filed: 04/09/18 11:50> Subjective - Date & Time of Evaluation Date of Evaluation: 04/09/18 Time of Evaluation: 08:35 - Subjective Subjective: Patient is doing well. Less abdominal pain. He had small BM. Did not tolerate advancing diet. Making a lot of urine. 5pt ROS negative except for above. Objective - Vital Signs/Intake and Output Vital Signs (last 24 hours): Temp Pulse Resp BP Pulse Ox 98.2 F 66 20 127/83 97 04/09/18 07:34 04/09/18 07:34 04/09/18 07:34 04/09/18 07:34 04/09/18 07:34 Intake and Output: 04/09/18 04/09/18 06:59 18:59 Intake Total 1700 1720 Balance 1700 1720 - Medications Medications: Current Medications Lactated Ringer's (Lactated Ringer's) 1,000 mls @ 200 mls/hr IV .Q5H [facility] Last Admin: 04/09/18 03:58 Dose: 200 mls/hr Folic Acid 1 mg/ Sodium (Chloride) 100.2 mls @ 60 mls/hr IV Q24H [facility] Last Admin: 04/08/18 20:40 Dose: 60 mls/hr Influenza Virus Vaccine (Flucelvax Quad 3802-9570 Syr) 60 mcg IM .ONCE ONE Stop: 04/10/18 10:01 Lorazepam (Ativan) 1 mg IVP Q4H PRN PRN Reason: Seizure activity Last Admin: 04/07/18 17:51 Dose: 1 mg Morphine Sulfate (Morphine) 4 mg IVP Q4 PRN PRN Reason: Pain, severe (8-10) Last Admin: 04/09/18 00:23 Dose: 4 mg Ondansetron HCl (Zofran Inj) 4 mg IVP Q6H PRN PRN Reason: Nausea/Vomiting Pantoprazole Sodium (Protonix Inj) 40 mg IVP DAILY [facility] Last Admin: 04/08/18 10:15 Dose: 40 mg Pneumococcal Polyvalent Vaccine (Pneumovax 23 Vaccine) 0.5 ml IM .ONCE ONE Stop: 04/10/18 10:01 Thiamine HCl (Vitamin B1 Inj) 100 mg IV DAILY [facility] Last Admin: 04/08/18 10:15 Dose: 100 mg - Labs Labs: 04/09/18 06:13 04/09/18 06:13 PT 11.5 SECONDS (9.7-12.2) 04/08/18 10:10 INR 1.1 04/08/18 10:10 - Constitutional Appears: Well, Non-toxic - Head Exam Head Exam: ATRAUMATIC, NORMAL INSPECTION - Eye Exam Eye Exam: EOMI, Normal appearance - Respiratory Exam Respiratory Exam: Clear to Ausculation Bilateral, NORMAL BREATHING PATTERN - Cardiovascular Exam Cardiovascular Exam: REGULAR RHYTHM, +S1, +S2 - GI/Abdominal Exam GI & Abdominal Exam: Soft, Tenderness, Normal Bowel Sounds, Organomegaly - Neurological Exam Neurological Exam: Alert, Awake, Oriented x3 - Psychiatric Exam Psychiatric exam: Normal Affect, Normal Mood - Skin Skin Exam: Normal Color, Warm Assessment and Plan - Assessment and Plan (Free Text) Assessment: #Acute pancreatitis, likely alcohol # alcoholic hepatitis #Alcohol abuse PLAN: -CT and U/S reviewed: hepatosplenomegaly, fatty liver, no gallstones. Acute pancreatitis. -DF score: very low -Continue full liquid diet. Advance as tolerated. IF patient has pain, nausea/vomiting worsened by food, scale back. Can retry low fat diet tomorrow AM. -Stop IVF -CIWA, thiamine, folate -Hepatitis panel negative -Must stop alcohol completely, this is causing a life-threatening condition. Patient understands. Case discussed with Dr. Bradley, see attestation. <Yon Bradley - Last Filed: 04/09/18 12:14> Objective - Vital Signs/Intake and Output Vital Signs (last 24 hours): Temp Pulse Resp BP Pulse Ox 98.2 F 66 20 127/83 97 04/09/18 07:34 04/09/18 07:34 04/09/18 07:34 04/09/18 07:34 04/09/18 07:34 Intake and Output: 04/09/18 04/09/18 06:59 18:59 Intake Total 1700 1720 Balance 1700 1720 - Medications Medications: Current Medications Folic Acid 1 mg/ Sodium (Chloride) 100.2 mls @ 60 mls/hr IV Q24H [facility] Last Admin: 04/08/18 20:40 Dose: 60 mls/hr Influenza Virus Vaccine (Flucelvax Quad 1325-1350 Syr) 60 mcg IM .ONCE ONE Stop: 04/10/18 10:01 Lorazepam (Ativan) 1 mg IVP Q4H PRN PRN Reason: Seizure activity Last Admin: 04/07/18 17:51 Dose: 1 mg Morphine Sulfate (Morphine) 4 mg IVP Q4 PRN PRN Reason: Pain, severe (8-10) Last Admin: 04/09/18 00:23 Dose: 4 mg Ondansetron HCl (Zofran Inj) 4 mg IVP Q6H PRN PRN Reason: Nausea/Vomiting Pantoprazole Sodium (Protonix Inj) 40 mg IVP DAILY [facility] Last Admin: 04/09/18 09:24 Dose: 40 mg Pneumococcal Polyvalent Vaccine (Pneumovax 23 Vaccine) 0.5 ml IM .ONCE ONE Stop: 04/10/18 10:01 Thiamine HCl (Vitamin B1 Inj) 100 mg IV DAILY [facility] Last Admin: 04/09/18 09:24 Dose: 100 mg - Labs Labs: 04/09/18 06:13 04/09/18 06:13 PT 11.5 SECONDS (9.7-12.2) 04/08/18 10:10 INR 1.1 04/08/18 10:10 Attending/Attestation - Attestation I have personally seen and examined this patient.: Yes I have fully participated in the care of the patient.: Yes I have reviewed all pertinent clinical information, including history, physical exam and plan: Yes Notes (Text): 04/09/18 12:11 I have seen and examined patient with GI fellow. No acute events overnight, he still reports ongoing epigastric pain, though improved compared to yesterday. He denies nausea, vomiting, fever/chills. Tolerating PO liquids without diffi culty. Review of vitals from today are normal. Acute ETOH hepatitis Acute ETOH pancreatitis Transaminitis - Full liquid diet, advance slowly as tolerated - Continue with supportive care - Anti-emetic therapy PRN - ETOH cessation counseling - LFTs trending down, continue to monitor - No further planned GI intervention, will sign off case. Please reconsult as necessary, thank you.
[2018-04-09 08:53] LABS: EOSINOPHIL 5 % (0-4); LYMPHOCYTE 11 % (20-40); MONOCYTE 6 % (0-10); NEUTROPHIL 78 % (50-75); TOTAL CELLS COUNTED 100
[2018-04-09] MEDS: Thiamine 100 mg/ml Inj IV SCH (09:24)
[2018-04-09 10:05] LABS: PLATELET ESTIMATE NORMAL (NORMAL)
--- NOTE | 2018-04-09 13:34 | CP.PCM.PN ---
<Maritza Courtney - Last Filed: 04/09/18 13:31> Subjective - Date & Time of Evaluation Date of Evaluation: 04/09/18 Time of Evaluation: 13:31 - Subjective Subjective: Maritza Courtney PGY1 Progress Note for Dr. Salinas Pt was examined at bedside this morning. He reports mild improvement in his abdominal pain, denying nausea or vomiting. He says he is able to tolerate liquid diet. Pt denies fever, chills, shortness of breath, chest pain, diarrhea, dysuria. Objective - Vital Signs/Intake and Output Vital Signs (last 24 hours): Temp Pulse Resp BP Pulse Ox 98.2 F 66 20 127/83 97 04/09/18 07:34 04/09/18 07:34 04/09/18 07:34 04/09/18 07:34 04/09/18 07:34 Intake and Output: 04/09/18 04/09/18 06:59 18:59 Intake Total 1700 1720 Balance 1700 1720 - Medications Medications: Current Medications Folic Acid 1 mg/ Sodium (Chloride) 100.2 mls @ 60 mls/hr IV Q24H [facility] Last Admin: 04/08/18 20:40 Dose: 60 mls/hr Influenza Virus Vaccine (Flucelvax Quad [id number] Syr) 60 mcg IM .ONCE ONE Stop: 04/10/18 10:01 Lorazepam (Ativan) 1 mg IVP Q4H PRN PRN Reason: Seizure activity Last Admin: 04/07/18 17:51 Dose: 1 mg Morphine Sulfate (Morphine) 4 mg IVP Q4 PRN PRN Reason: Pain, severe (8-10) Last Admin: 04/09/18 00:23 Dose: 4 mg Ondansetron HCl (Zofran Inj) 4 mg IVP Q6H PRN PRN Reason: Nausea/Vomiting Pantoprazole Sodium (Protonix Inj) 40 mg IVP DAILY [facility] Last Admin: 04/09/18 09:24 Dose: 40 mg Pneumococcal Polyvalent Vaccine (Pneumovax 23 Vaccine) 0.5 ml IM .ONCE ONE Stop: 04/10/18 10:01 Thiamine HCl (Vitamin B1 Inj) 100 mg IV DAILY [facility] Last Admin: 04/09/18 09:24 Dose: 100 mg - Labs Labs: 04/09/18 06:13 04/09/18 06:13 PT 11.5 SECONDS (9.7-12.2) 04/08/18 10:10 INR 1.1 04/08/18 10:10 - Additional Findings Additional findings: - Constitutional Appears: Well, No Acute Distress - Head Exam Head Exam: ATRAUMATIC, NORMOCEPHALIC - Eye Exam Eye Exam: EOMI, PERRL Pupil Exam: NORMAL ACCOMODATION - ENT Exam ENT Exam: Mucous Membranes Moist - Respiratory Exam Respiratory Exam: Clear to Ausculation Bilateral, NORMAL BREATHING PATTERN. abs ent: Rales, Rhonchi, Wheezes, Respiratory Distress - Cardiovascular Exam Cardiovascular Exam: REGULAR RHYTHM, +S1, +S2. absent: Gallop, Rubs, Murmur - GI/Abdominal Exam GI & Abdominal Exam: Soft, Tenderness, Normal Bowel Sounds. absent: Distended, Firm Additional comments: tenderness to palpation of all four quadrants - Extremities Exam Extremities Exam: Normal Inspection. absent: Pedal Edema - Back Exam Back Exam: NORMAL INSPECTION - Neurological Exam Neurological Exam: Alert, Awake, CN II-XII Intact, Oriented x3 Additional comments: no tremors - Psychiatric Exam Psychiatric exam: Normal Affect, Normal Mood - Skin Skin Exam: Normal Color Assessment and Plan - Assessment and Plan (Free Text) Assessment: 27yo M with PMH of alcohol abuse presenting with abdominal pain, admitted for monitoring of pancreatitis. Advanced diet to full liquids, pt tolerating. Plan: Acute Pancreatitis - 2/2 ETOH abuse - CT abd/pel: acute pancreatitis w/ associated fluid infiltration in the peripancreatic mesentery with extension into Smith's pouch. Fluid in pelvis R>L. hepatomegaly with marked fatty infiltration - US abd: enlarged liver, increased echogenicity of the hepatic parenchymal cortex suggestive of fatty infiltration. Heterogeneous appearance of pancreas. - Lipase 7806 - LDH 1017 - hep panel negative - Panfilo's criteria: 15% mortality - Morphine 4 mg IVP Q4 PRN severe pain - Zofran 4 mg IVP Q6H PRN nausea - full liquid diet - advance diet as tolerated - GI consulted, Dr. Bradley, recs appreciated ETOH Abuse - History of binge drinking twice/week - CAGE score of 2pts - Ativan 1 mg IVP Q4H PRN seizure activity - Thiamine, FA - CIWA protocol - aspiration precautions - seizure precautions - neuro checks - alcohol cessation counseling Prophylaxis GI: Protonix 40mg IVP DVT: SCDs Full liquid diet Dispo: D/C tomorrow if tolerating advanced diet Pt seen and case reviewed with Dr. Salinas <Lucho Salinas - Last Filed: 04/09/18 16:09> Objective - Vital Signs/Intake and Output Vital Signs (last 24 hours): Temp Pulse Resp BP Pulse Ox 98.2 F 66 20 127/83 97 04/09/18 07:34 04/09/18 07:34 04/09/18 07:34 04/09/18 07:34 04/09/18 07:34 Intake and Output: 04/09/18 04/09/18 06:59 18:59 Intake Total 1699 2019 Balance 1699 2019 - Medications Medications: Current Medications Folic Acid 1 mg/ Sodium (Chloride) 100.2 mls @ 60 mls/hr IV Q24H [facility] Last Admin: 04/08/18 20:40 Dose: 60 mls/hr Influenza Virus Vaccine (Flucelvax Quad [id number] Syr) 60 mcg IM .ONCE ONE Stop: 04/10/18 10:01 Lorazepam (Ativan) 1 mg IVP Q4H PRN PRN Reason: Seizure activity Last Admin: 04/07/18 17:51 Dose: 1 mg Morphine Sulfate (Morphine) 4 mg IVP Q4 PRN PRN Reason: Pain, severe (8-10) Last Admin: 04/09/18 15:41 Dose: 4 mg Ondansetron HCl (Zofran Inj) 4 mg IVP Q6H PRN PRN Reason: Nausea/Vomiting Pantoprazole Sodium (Protonix Inj) 40 mg IVP DAILY [facility] Last Admin: 04/09/18 09:24 Dose: 40 mg Pneumococcal Polyvalent Vaccine (Pneumovax 23 Vaccine) 0.5 ml IM .ONCE ONE Stop: 04/10/18 10:01 Thiamine HCl (Vitamin B1 Inj) 100 mg IV DAILY [facility] Last Admin: 04/09/18 09:24 Dose: 100 mg - Labs Labs: 04/09/18 06:13 04/09/18 06:13 PT 11.5 SECONDS (9.7-12.2) 04/08/18 10:10 INR 1.1 04/08/18 10:10 Attending/Attestation - Attestation I have personally seen and examined this patient.: Yes I have fully participated in the care of the patient.: Yes I have reviewed all pertinent clinical information, including history, physical exam and plan: Yes Notes (Text): 04/09/18 16:07 Medical attending: Patient was seen and examined by me with the medical records assistant and agree with the above The patient was not in any acute distress this morning. The patient intially we had wanted to discharge however later on I was notified he did not tolerate his diet and GI advised to wait additional day Lucho Salinas
[2018-04-10 07:44] LABS: ALB/GLOB RATIO 1.5 (1.0-2.1); ALBUMIN 4.5 g/dL (3.5-5.0); ALT/SGPT 79 U/L (21-72); AST/SGOT 92 U/L (17-59); BLOOD UREA NITROGEN 8 mg/dL (9-20); CALCIUM 9.2 mg/dl (8.6-10.4); GFR NON-AFRICAN AMERICAN > 60
[2018-04-10 07:47] LABS: BASO % 0.6 % (0.0-2.0); EOS # 0.3 K/uL (0.0-0.7); EOS % 4.4 % (0.0-4.0); HEMOGLOBIN 15.1 g/dL (12.0-18.0); LYMPH # 0.8 K/uL (1.0-4.3); LYMPH % 13.3 % (20.0-40.0); MEAN CELL VOLUME 93.4 fL (80.0-94.0); MEAN CORPUSCULAR HEMOGLOBIN 32.8 pg (27.0-31.0); MEAN CORPUSCULAR HGB CONC 35.1 g/dL (33.0-37.0); MEAN PLATELET VOLUME 7.9 fL (7.2-11.7); MONO # 0.5 K/uL (0.0-0.8); NEUT # 4.4 K/uL (1.8-7.0); NEUT % 73.7 % (50.0-75.0); RBC 4.61 Mil/uL (4.40-5.90); RED CELL DISTRIBUTION WIDTH 12.7 % (11.5-14.5); WHITE BLOOD COUNT 5.9 K/uL (4.8-10.8)
[2018-04-10 08:32] VITALS: TEMP 98.5; O2SAT 95
[2018-04-10] MEDS ORDERED: Pneumococcal 23-Valent Vaccine IM ONE (10:00)
[2018-04-10] MEDS ORDERED: Influenza Vaccine 60 mcg/0.5 mL SYR (4YR UP) IM ONE (10:00)
[2018-04-10] MEDS: Thiamine 100 mg/ml Inj IV SCH (11:29)
--- NOTE | 2018-04-10 12:23 | CP.PCM.DIS ---
<Megan Garcia - Last Filed: 04/10/18 19:29> Provider - Provider Date of Admission: 04/07/18 15:22 Attending physician: Lucho Salinas DO Time Spent in preparation of Discharge (in minutes): 45 Hospital Course - Lab Results Lab Results: Most Recent Lab Values WBC 5.9 K/uL (4.8-10.8) 04/10/18 07:09 RBC 4.61 Mil/uL (4.40-5.90) 04/10/18 07:09 Hgb 15.1 g/dL (12.0-18.0) 04/10/18 07:09 Hct 43.1 % (35.0-51.0) 04/10/18 07:09 MCV 93.4 fL (80.0-94.0) 04/10/18 07:09 MCH 32.8 pg (27.0-31.0) H 04/10/18 07:09 MCHC 35.1 g/dL (33.0-37.0) 04/10/18 07:09 RDW 12.7 % (11.5-14.5) 04/10/18 07:09 Plt Count 201 K/uL (130-400) 04/10/18 07:09 MPV 7.9 fL (7.2-11.7) 04/10/18 07:09 Neut % (Auto) 73.7 % (50.0-75.0) 04/10/18 07:09 Lymph % (Auto) 13.3 % (20.0-40.0) L 04/10/18 07:09 [place] % (Auto) 8.0 % (0.0-10.0) 04/10/18 07:09 Eos % (Auto) 4.4 % (0.0-4.0) H 04/10/18 07:09 Baso % (Auto) 0.6 % (0.0-2.0) 04/10/18 07:09 Neut # (Auto) 4.4 K/uL (1.8-7.0) 04/10/18 07:09 Lymph # (Auto) 0.8 K/uL (1.0-4.3) L 04/10/18 07:09 [place] # (Auto) 0.5 K/uL (0.0-0.8) 04/10/18 07:09 Eos # (Auto) 0.3 K/uL (0.0-0.7) 04/10/18 07:09 Baso # (Auto) 0.0 K/uL (0.0-0.2) 04/10/18 07:09 Neutrophils % (Manual) 78 % (50-75) H 04/09/18 06:13 Band Neutrophils % 1 % (0-2) 04/07/18 13:38 Lymphocytes % (Manual) 11 % (20-40) L 04/09/18 06:13 Monocytes % (Manual) 6 % (0-10) 04/09/18 06:13 Eosinophils % (Manual) 5 % (0-4) H 04/09/18 06:13 Myelocytes % 1 % (0-0) H 04/08/18 04:07 Platelet Estimate Normal (NORMAL) 04/09/18 06:13 RBC Morphology Normal 04/07/18 13:38 PT 11.5 SECONDS (9.7-12.2) 04/08/18 10:10 INR 1.1 04/08/18 10:10 Sodium 133 mmol/L (132-148) 04/10/18 07:09 Potassium 3.5 mmol/L (3.6-5.2) L 04/10/18 07:09 Chloride 93 mmol/L (98-107) L 04/10/18 07:09 Carbon Dioxide 27 mmol/L (22-30) 04/10/18 07:09 Anion Gap 16 (10-20) 04/10/18 07:09 BUN 8 mg/dL (9-20) L 04/10/18 07:09 Creatinine 0.7 mg/dL (0.8-1.5) L 04/10/18 07:09 Est GFR ( Amer) > 60 04/10/18 07:09 Est GFR (Non-Af Amer) > 60 04/10/18 07:09 Random Glucose 111 mg/dL (75-110) H 04/10/18 07:09 Calcium 9.2 mg/dl (8.6-10.4) 04/10/18 07:09 Phosphorus 4.2 mg/dL (2.5-4.5) 04/10/18 07:09 Magnesium 1.9 mg/dL (1.6-2.3) 04/10/18 07:09 Total Bilirubin 1.2 mg/dL (0.2-1.3) 04/10/18 07:09 AST 92 U/L (17-59) H 04/10/18 07:09 ALT 79 U/L (21-72) H 04/10/18 07:09 Alkaline Phosphatase 134 U/L (38-126) H D 04/10/18 07:09 Lactate Dehydrogenase 1017 U/L (313-618) H 04/07/18 18:14 Total Protein 7.4 g/dL (6.3-8.3) 04/10/18 07:09 Albumin 4.5 g/dL (3.5-5.0) 04/10/18 07:09 Globulin 3.0 gm/dL (2.2-3.9) 04/10/18 07:09 Albumin/Globulin Ratio 1.5 (1.0-2.1) 04/10/18 07:09 Lipase 7806 U/L (23-300) H 04/07/18 13:38 Urine Color Yeny (YELLOW) 04/07/18 14:26 Urine Clarity Clear (Clear) 04/07/18 14:26 Urine pH 5.0 (5.0-8.0) 04/07/18 14:26 Ur Specific [place] 1.024 (1.003-1.030) 04/07/18 14:26 Urine Protein 2+ mg/dL (NEGATIVE) H 04/07/18 14:26 Urine Glucose (UA) Normal mg/dL (Normal) 04/07/18 14:26 Urine Ketones Negative mg/dL (NEGATIVE) 04/07/18 14:26 Urine Blood 1+ (NEGATIVE) H 04/07/18 14:26 Urine Nitrate Negative (NEGATIVE) 04/07/18 14:26 Urine Bilirubin Negative (NEGATIVE) 04/07/18 14:26 Urine Urobilinogen 2.0 mg/dL (0.2-1.0) 04/07/18 14:26 Ur Leukocyte Esterase Neg Veronica/uL (Negative) 04/07/18 14:26 Urine WBC (Auto) 2 /hpf (0-5) 04/07/18 14:26 Urine RBC (Auto) 5 /hpf (0-3) H 04/07/18 14:26 Ur Squamous Epith Cells < 1 /hpf (0-5) 04/07/18 14:26 Urine Bacteria Rare (<OCC) 04/07/18 14:26 Hyaline Casts 6-10 /lpf (0-2) H 04/07/18 14:26 Granular Casts (Auto) 2 /lpf (0-1) 04/07/18 14:26 Hepatitis A IgM Ab Negative (NEGATIVE) 04/08/18 10:10 Hep Bs Antigen Negative (NEGATIVE) 04/08/18 10:10 Hep B Core IgM Ab Negative (NEGATIVE) 04/08/18 10:10 Hepatitis C Antibody Negative (NEGATIVE) 04/08/18 10:10 - Hospital Course Hospital Course: HPI:This 27 y/o male with no PMHx - presents to the [facility] ER complaining of abdominal pain and vomiting since this morning. Patient admits to drinking 6 beers and taking 4 shots of tequila over a 2hr period between 5pm and 7pm yesterday. He then went home, watched TV, and fell asleep without incident. At roughly 7am this morning, he awoke feeling nauseous, and vomited food contents 2x between 7 and 8am. Between 8am and 2pm he vomited 5 more times, consistent with yellow/green bile. He has not been able to keep food down, and would vomit any water he attempted to drink. He came to the ED at 2pm because he developed 10/10 sharp abdominal pain that shoots through him into his back. This is his second such episode over the past month. He has been consuming 6beers and 4shots of tequilla, twice per week, for roughly the past 4 years. He is not sure if he has a problem. He denies fever, chills, chest pain, SOB, d/c, dysuria, hematuria, hematemesis, hematoscezia, LE edema Hospital Course: Pt was admitted for pancreatitis likely secondary to alcohol use. GI was consulted and recommended and abdominal US and hep panel. Abdominal US showed enlarged liver, increased echogenicity of the hepatic parenc hymal cortex suggestive of fatty infiltration. Heterogeneous appearance of pancreas. CT abdomen showed acute pancreatitis w/ associated fluid infiltration in the peripancreatic mesentery with extension into Smith's pouch. Fluid in pelvis R>L; hepatomegaly with marked fatty infiltration Lipase and LDH were elevated. Hep panel was negative. Panfilo's crieteria showed 15% mortality. Pt was put on CIWA protocol, aspiration and seizure precautions. He did not show signs of withdrawal. The following day, diet was advance to clear liquids then full liquids which patient tolerated. He reported improvement in the abdominal pain. Pt was deemed stable to discharge to home after tolerating advanced diet. Upon Discharge: Pt was deemed stable for discharge to home. He was instructed to follow up with the [facility] and to take medications as prescribed. Pt was counseled on alcohol cessation and understood. This is a brief summary of the hospital course. Please see EMR for full details. Discharge Exam - Head Exam Head Exam: ATRAUMATIC, NORMAL INSPECTION - Eye Exam Eye Exam: EOMI, Normal appearance - ENT Exam ENT Exam: Mucous Membranes Moist - Respiratory Exam Respiratory Exam: NORMAL BREATHING PATTERN, UNREMARKABLE. absent: Wheezes, Respiratory Distress - Cardiovascular Exam Cardiovascular Exam: REGULAR RHYTHM, +S1, +S2 - GI/Abdominal Exam GI & Abdominal Exam: Normal Bowel Sounds, Soft, Unremarkable. absent: Distended, Guarding - Extremities Exam Extremities exam: normal inspection - Neurological Exam Neurological exam: Alert, Oriented x3 - Psychiatric Exam Psychiatric exam: Normal Affect, Normal Mood - Skin Skin Exam: Dry, Intact, Normal Color, Warm Discharge Plan - Discharge Medications Prescriptions: RX: Folic Acid 1 mg PO DAILY #30 tab RX: Multivitamin [Daily Multiple Vitamin] 1 each PO DAILY #30 tablet RX: Thiamine [Vitamin B1 Tab] 100 mg PO DAILY #30 tab - Follow Up Plan Condition: STABLE Disposition: HOME/ ROUTINE Instructions: Pancreatitis (DC) Additional Instructions: Please follow up with primary care at the [facility] here at [facility]. Please call [phone] to make an appointment. Please avoid fatty foods. Please stop drinking as it will worsen your health. Please take your medications as prescribed. Please return to the emergency department if symptoms return. Take care and be well. Por favor, siga con la atencin primaria en la [facility] en [facility]. Por favor llame al [phone] para hacer anisha jaki. Por favor, evite los alimentos grasos. Por favor, deje de beber ya que empeorar perez shayy. Por favor, tome asim medicamentos segn lo prescrito. Por favor regrese al departamento de emergencias si los sntomas regresan. Cudate y sintete bony. <Lucho Salinas - Last Filed: 04/11/18 08:02> Provider - Provider Date of Admission: 04/07/18 15:22 Attending physician: Lucho Salinas, DO Hospital Course - Lab Results Lab Results: Most Recent Lab Values WBC 5.9 K/uL (4.8-10.8) 04/10/18 07:09 RBC 4.61 Mil/uL (4.40-5.90) 04/10/18 07:09 Hgb 15.1 g/dL (12.0-18.0) 04/10/18 07:09 Hct 43.1 % (35.0-51.0) 04/10/18 07:09 MCV 93.4 fL (80.0-94.0) 04/10/18 07:09 MCH 32.8 pg (27.0-31.0) H 04/10/18 07:09 MCHC 35.1 g/dL (33.0-37.0) 04/10/18 07:09 RDW 12.7 % (11.5-14.5) 04/10/18 07:09 Plt Count 201 K/uL (130-400) 04/10/18 07:09 MPV 7.9 fL (7.2-11.7) 04/10/18 07:09 Neut % (Auto) 73.7 % (50.0-75.0) 04/10/18 07:09 Lymph % (Auto) 13.3 % (20.0-40.0) L 04/10/18 07:09 [place] % (Auto) 8.0 % (0.0-10.0) 04/10/18 07:09 Eos % (Auto) 4.4 % (0.0-4.0) H 04/10/18 07:09 Baso % (Auto) 0.6 % (0.0-2.0) 04/10/18 07:09 Neut # (Auto) 4.4 K/uL (1.8-7.0) 04/10/18 07:09 Lymph # (Auto) 0.8 K/uL (1.0-4.3) L 04/10/18 07:09 [place] # (Auto) 0.5 K/uL (0.0-0.8) 04/10/18 07:09 Eos # (Auto) 0.3 K/uL (0.0-0.7) 04/10/18 07:09 Baso # (Auto) 0.0 K/uL (0.0-0.2) 04/10/18 07:09 Neutrophils % (Manual) 78 % (50-75) H 04/09/18 06:13 Band Neutrophils % 1 % (0-2) 04/07/18 13:38 Lymphocytes % (Manual) 11 % (20-40) L 04/09/18 06:13 Monocytes % (Manual) 6 % (0-10) 04/09/18 06:13 Eosinophils % (Manual) 5 % (0-4) H 04/09/18 06:13 Myelocytes % 1 % (0-0) H 04/08/18 04:07 Platelet Estimate Normal (NORMAL) 04/09/18 06:13 RBC Morphology Normal 04/07/18 13:38 PT 11.5 SECONDS (9.7-12.2) 04/08/18 10:10 INR 1.1 04/08/18 10:10 Sodium 133 mmol/L (132-148) 04/10/18 07:09 Potassium 3.5 mmol/L (3.6-5.2) L 04/10/18 07:09 Chloride 93 mmol/L (98-107) L 04/10/18 07:09 Carbon Dioxide 27 mmol/L (22-30) 04/10/18 07:09 Anion Gap 16 (10-20) 04/10/18 07:09 BUN 8 mg/dL (9-20) L 04/10/18 07:09 Creatinine 0.7 mg/dL (0.8-1.5) L 04/10/18 07:09 Est GFR ( Amer) > 60 04/10/18 07:09 Est GFR (Non-Af Amer) > 60 04/10/18 07:09 Random Glucose 111 mg/dL (75-110) H 04/10/18 07:09 Calcium 9.2 mg/dl (8.6-10.4) 04/10/18 07:09 Phosphorus 4.2 mg/dL (2.5-4.5) 04/10/18 07:09 Magnesium 1.9 mg/dL (1.6-2.3) 04/10/18 07:09 Total Bilirubin 1.2 mg/dL (0.2-1.3) 04/10/18 07:09 AST 92 U/L (17-59) H 04/10/18 07:09 ALT 79 U/L (21-72) H 04/10/18 07:09 Alkaline Phosphatase 134 U/L (38-126) H D 04/10/18 07:09 Lactate Dehydrogenase 1017 U/L (313-618) H 04/07/18 18:14 Total Protein 7.4 g/dL (6.3-8.3) 04/10/18 07:09 Albumin 4.5 g/dL (3.5-5.0) 04/10/18 07:09 Globulin 3.0 gm/dL (2.2-3.9) 04/10/18 07:09 Albumin/Globulin Ratio 1.5 (1.0-2.1) 04/10/18 07:09 Lipase 7806 U/L (23-300) H 04/07/18 13:38 Urine Color Yeny (YELLOW) 04/07/18 14:26 Urine Clarity Clear (Clear) 04/07/18 14:26 Urine pH 5.0 (5.0-8.0) 04/07/18 14:26 Ur Specific [place] 1.024 (1.003-1.030) 04/07/18 14:26 Urine Protein 2+ mg/dL (NEGATIVE) H 04/07/18 14:26 Urine Glucose (UA) Normal mg/dL (Normal) 04/07/18 14:26 Urine Ketones Negative mg/dL (NEGATIVE) 04/07/18 14:26 Urine Blood 1+ (NEGATIVE) H 04/07/18 14:26 Urine Nitrate Negative (NEGATIVE) 04/07/18 14:26 Urine Bilirubin Negative (NEGATIVE) 04/07/18 14:26 Urine Urobilinogen 2.0 mg/dL (0.2-1.0) 04/07/18 14:26 Ur Leukocyte Esterase Neg Veronica/uL (Negative) 04/07/18 14:26 Urine WBC (Auto) 2 /hpf (0-5) 04/07/18 14:26 Urine RBC (Auto) 5 /hpf (0-3) H 04/07/18 14:26 Ur Squamous Epith Cells < 1 /hpf (0-5) 04/07/18 14:26 Urine Bacteria Rare (<OCC) 04/07/18 14:26 Hyaline Casts 6-10 /lpf (0-2) H 04/07/18 14:26 Granular Casts (Auto) 2 /lpf (0-1) 04/07/18 14:26 Hepatitis A IgM Ab Negative (NEGATIVE) 04/08/18 10:10 Hep Bs Antigen Negative (NEGATIVE) 04/08/18 10:10 Hep B Core IgM Ab Negative (NEGATIVE) 04/08/18 10:10 Hepatitis C Antibody Negative (NEGATIVE) 04/08/18 10:10 Attending/Attestation - Attestation I have personally seen and examined this patient.: Yes I have fully participated in the care of the patient.: Yes I have reviewed all pertinent clinical information, including history, physical exam and plan: Yes Notes (Text): 04/11/18 08:01 Medical attending: Patient was seen and examined by me. Agree with the above note by the resident The patient was not in any acute distress. We explained to him that he has to also advance his diet very carefully Also he needs to avoid alcohol as it is really important before he causes some sort of catastrophic harm to himself Lucho Salinas
[2018-04-10 15:42] VITALS: BP 133/76; PULSE 70
== END 2018-04-10 18:30 | disposition home or self-care (01) | DRG 282 ==
LOC: C.ER 11:41 → C.9E 15:22 → C.3T 04-08 10:52
PROVIDERS: ADMIT Hospitalist; ATTEND Hospitalist
DX: K85.20 Alcohol induced acute pancreatitis without necrosis or infection (principal); K76.0 Fatty (change of) liver, not elsewhere classified; K70.10 Alcoholic hepatitis without ascites; F10.10 Alcohol abuse, uncomplicated

== ENCOUNTER 2018-07-23 22:07 | Inpatient (IN) | payer SELFPAY ==
--- NOTE | 2018-07-23 23:10 | C.PDOC ---
History Of Present Illness Patient presents with abdominal pain after drinking a bottle of tequila yesterday. Denies fever, chills, nausea, or vomiting. Time Seen by Provider: 07/23/18 23:09 Chief Complaint (Nursing): Abdominal Pain History Per: Patient History/Exam Limitations: no limitations Onset/Duration Of Symptoms: Other (Yesterday) Current Symptoms Are (Timing): Still Present Context: Other (ETOH) Severity: Moderate Pain Scale Rating Of: 4 Location Of Pain/Discomfort: Epigastric Radiation Of Pain To:: None Quality Of Discomfort: Unable To Describe Associated Symptoms: denies: Fever, Chills, Nausea, Vomiting Exacerbating Factors: None Alleviating Factors: None Recent travel outside of the [place]: No Past Medical History Reviewed: Historical Data, Nursing Documentation, Vital Signs Vital Signs: Last Vital Signs Temp 98.2 F 07/23/18 22:38 Pulse 64 07/23/18 22:38 Resp 18 07/23/18 22:38 BP 148/105 H 07/23/18 22:38 Pulse Ox 100 07/23/18 22:38 Primary Care Physician: Non CP Provider - Medical History PMH: Asthma Family History: States: No Known Family Hx - Social History Hx Alcohol Use: Yes (beers and hard liquor 2 times a week) Hx Substance Use: No - Immunization History Hx Tetanus Toxoid Vaccination: No Hx Influenza Vaccination: No Hx Pneumococcal Vaccination: No Review Of Systems Constitutional: Negative for: Fever, Chills Cardiovascular: Negative for: Chest Pain, Palpitations Respiratory: Negative for: Cough, Shortness of Breath Gastrointestinal: Positive for: Abdominal Pain. Negative for: Nausea, Vomiting Neurological: Negative for: Weakness, Numbness Physical Exam - Physical Exam Appears: Non-toxic Skin: Warm, Dry Head: Normacephalic Oral Mucosa: Moist Chest: Symmetrical, No Tenderness Cardiovascular: Rhythm Regular Respiratory: No Rales, No Rhonchi, No Wheezing Gastrointestinal/Abdominal: Soft, Tenderness (Mid epigastric), No Guarding, No Rebound Neurological/Psych: Oriented x3 ED Course And Treatment - Laboratory Results Result Diagrams: 07/23/18 23:40 07/23/18 23:40 O2 Sat by Pulse Oximetry: 100 (Room air) Pulse Ox Interpretation: Normal Progress Note: Blood work and urinalysis ordered. Protonix, zofran, and IV fluids administered. Disposition Discussed With : Warren Solares Comment: accepted the pt on his service and took over the care at 2:05 AM Doctor Will See Patient In The: ED Counseled Patient/Family Regarding: Studies Performed, Diagnosis - Disposition Referrals: Non [facility] Provider, [Primary Care Provider] - Disposition: HOSPITALIZED Disposition Time: 23:09 Condition: FAIR Forms: [facility] (Nigerien) - POA Present On Arrival: Poor Glycemic Control - Clinical Impression Clinical Impression: Acute pancreatitis, Alcohol intoxication - Scribe Statement The provider has reviewed the documentation as recorded by the Scribdeuce Marquis All medical record entries made by the Scribe were at my direction and personally dictated by me. I have reviewed the chart and agree that the record accurately reflects my personal performance of the history, physical exam, medical decision making, and the department course for this patient. I have also personally directed, reviewed, and agree with the discharge instructions and disposition. Decision To Admit - Pt Status Changed To: Hospital Disposition Of: Inpatient - Admit Certification Admit to Inpatient:: After my assessment, the patient will require hospitalization for at least two midnights. This is because of the severity of symptoms shown, intensity of services needed, and/or the medical risk in this patient being treated as an outpatient. - InPatient: Physician Admission Certification:: After my assessment, the patient will require hospitalization for at least two midnights. This is because of the severity of symptoms shown, intensity of services needed, and/or the medical risk in this patient being treated as an outpatient. - . Bed Request Type: Regular Admitting Physician: Warren Solares Patient Diagnosis: Acute pancreatitis, Alcohol intoxication
[2018-07-23] MEDS ORDERED: Sodium Chloride 0.9% 1,000 ML IV ONE (23:11)
[2018-07-23] MEDS ORDERED: Sodium Chloride 0.9% 1,000 ML ONE (23:39)
[2018-07-23 23:48] LABS: BASO % 0.2 % (0.0-2.0); HEMOGLOBIN 17.4 g/dL (12.0-18.0); LYMPH # 0.9 K/uL (1.0-4.3); LYMPH % 6.5 % (20.0-40.0); MEAN CELL VOLUME 94.1 fL (80.0-94.0); MEAN CORPUSCULAR HGB CONC 35.1 g/dL (33.0-37.0); MEAN PLATELET VOLUME 8.7 fL (7.2-11.7); MONO # 0.7 K/uL (0.0-0.8); MONO % 5.1 % (0.0-10.0); NEUT # 11.8 K/uL (1.8-7.0); NEUT % 88.2 % (50.0-75.0); NRBC % 0.3 % (0.0-2.0); PLATELET COUNT 288 K/uL (130-400); RBC 5.28 Mil/uL (4.40-5.90); RED CELL DISTRIBUTION WIDTH 13.3 % (11.5-14.5); WHITE BLOOD COUNT 13.4 K/uL (4.8-10.8)
[2018-07-23 23:52] LABS: URINE BACTERIA RARE (<OCC); URINE BILIRUBIN NEGATIVE (NEGATIVE); URINE BLOOD NEGATIVE (NEGATIVE); URINE CLARITY Hazy (Clear); URINE COLOR Yellow (YELLOW); URINE GLUCOSE (UA) NORMAL (Normal); URINE HYALINE CAST 0-2 /lpf (0-2); URINE LEUKOCYTE ESTERASE NEG Leu/uL (Negative); URINE PROTEIN 1+ mg/dL (NEGATIVE); URINE UROBILINOGEN NORMAL mg/dL (0.2-1.0)
[2018-07-24] LABS: ALB/GLOB RATIO 1.7 (1.0-2.1); ALT/SGPT 152 U/L (21-72); AST/SGOT 195 U/L (17-59); BLOOD UREA NITROGEN 18 mg/dL (9-20); CALCIUM 9.2 mg/dl (8.6-10.4); GFR NON-AFRICAN AMERICAN > 60
[2018-07-24 00:03] LABS: BARBITURATES, UR NEGATIVE (NEGATIVE); BENZODIAZEPINES, UR NEGATIVE (NEGATIVE); OPIATES, UR NEGATIVE (NEGATIVE); PHENCYCLIDINE, UR NEGATIVE (NEGATIVE)
[2018-07-24 00:10] LABS: LIPASE 6103 U/L (23-300)
[2018-07-24] MEDS ORDERED: Sodium Chloride 0.9% 2,000 ML IV ONE (00:11)
[2018-07-24] MEDS ORDERED: Iodixanol 320 MG/ML 100 ML BOTTLE IV ONE (00:27)
[2018-07-24] MEDS ORDERED: Sodium Chloride 0.9% 1,000 ML ONE (00:54)
[2018-07-24 02:05] LABS: LYMPHOCYTE 6 % (20-40); MONOCYTE 5 % (0-10); NEUTROPHIL 89 % (50-75); PLATELET ESTIMATE NORMAL (NORMAL); TOTAL CELLS COUNTED 100
[2018-07-24] MEDS ORDERED: Thiamine 100 mg/ml Inj IV ONE (02:15)
--- NOTE | 2018-07-24 02:31 | CP.PCM.HP ---
<Elysia Small - Last Filed: 07/24/18 02:29> History of Present Illness - History of Present Illness History of Present Illness: Medicine H&P for Dr. Solares's service CC: abdominal pain HPI: Patient is a 27 yo male w/PMH of alcohol abuse presents to ED for abdominal pain. States he drank a bottle of whiskey yesterday by himself. Woke up this morning with sharp diffuse abdominal pain, characterized as sharp, non- radiating, with 4-5 episodes of nausea with vomiting NBNB. [facility]. States he had similar episode about 3 months at [facility] requiring hospitilization as well. Denies cp, sob, constipation or diarrhea, and dysuria. PMHx: etoh abuse PSHx: none Meds: none Allergies: NKDA FamHx: Mom 48yo w/HTN; Dad 50yo w/ GERD SocHx: ETOH- drink 6beers and 4shots of tequilla 2x/wk (for the past 4 years). Denies tobacco or illicit drug use. 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 PMD: none Present on Admission - Present on Admission Any Indicators Present on Admission: No Review of Systems - Review of Systems All systems: reviewed and no additional remarkable complaints except Review of Systems: see hpi Past Patient History - Infectious Disease Hx of Infectious Diseases: None - Past Medical History & Family History Past Medical History?: Yes - Past Social History Smoking Status: Never Smoked - PULMONARY Hx Asthma: Yes - HEENT Hx Epistaxis: Yes - MUSCULOSKELETAL/RHEUMATOLOGICAL Hx Falls: No - PSYCHIATRIC Hx Substance Use: No - SURGICAL HISTORY Hx Surgeries: No - ANESTHESIA Hx Anesthesia: No Meds Allergies/Adverse Reactions: Allergies Allergy/AdvReac Type Severity Reaction Status Date / Time spicy food Allergy Uncoded 03/19/17 15:41 Physical Exam - Constitutional Appears: In Acute Distress - Head Exam Head Exam: NORMAL INSPECTION, NORMOCEPHALIC - Eye Exam Eye Exam: EOMI, Normal appearance. absent: Nystagmus, Scleral icterus - ENT Exam ENT Exam: Mucous Membranes Moist - Respiratory Exam Respiratory Exam: Clear to Auscultation Bilateral, NORMAL BREATHING PATTERN. absent: Rales, Rhonchi, Wheezes - Cardiovascular Exam Cardiovascular Exam: Tachycardia, REGULAR RHYTHM, +S1, +S2 - GI/Abdominal Exam GI & Abdominal Exam: Normal Bowel Sounds, Soft, Tenderness. absent: Distended, Firm, Guarding, Hernia - Extremities Exam Extremities exam: Positive for: normal inspection. Negative for: calf t enderness, pedal edema - Neurological Exam Neurological exam: Alert, Oriented x3 - Psychiatric Exam Psychiatric exam: Anxious - Skin Skin Exam: Dry, Intact, Normal Color Results - Vital Signs Recent Vital Signs: Last Vital Signs Temp 98.8 F 07/24/18 01:20 Pulse 69 07/24/18 01:20 Resp 19 07/24/18 01:20 BP 153/88 H 07/24/18 01:20 Pulse Ox 100 07/24/18 02:06 - Labs Result Diagrams: 07/23/18 23:40 07/23/18 23:40 Labs: Laboratory Results - last 24 hr 07/23/18 07/23/18 07/23/18 22:37 23:40 23:40 WBC 13.4 H D RBC 5.28 Hgb 17.4 D Hct 49.7 MCV 94.1 H MCH 33.0 H MCHC 35.1 RDW 13.3 Plt Count 288 MPV 8.7 Neut % (Auto) 88.2 H Lymph % (Auto) 6.5 L Holmes % (Auto) 5.1 Eos % (Auto) 0.0 Baso % (Auto) 0.2 Neut # (Auto) 11.8 H Lymph # (Auto) 0.9 L Holmes # (Auto) 0.7 Eos # (Auto) 0.0 Baso # (Auto) 0.0 Neutrophils % (Manual) 89 H Lymphocytes % (Manual) 6 L Monocytes % (Manual) 5 Platelet Estimate Normal RBC Morphology Normal Sodium Potassium Chloride Carbon Dioxide Anion Gap BUN Creatinine Est GFR ( Amer) Est GFR (Non-Af Amer) POC Glucose (mg/dL) 153 H Random Glucose Calcium Total Bilirubin AST ALT Alkaline Phosphatase Total Protein Albumin Globulin Albumin/Globulin Ratio Lipase Urine Color Yellow Urine Clarity Hazy Urine pH 5.0 Ur Specific Ava 1.020 Urine Protein 1+ H Urine Glucose (UA) Normal Urine Ketones Negative Urine Blood Negative Urine Nitrate Negative Urine Bilirubin Negative Urine Urobilinogen Normal Ur Leukocyte Esterase Neg Urine WBC (Auto) 1 Urine RBC (Auto) 1 Urine Bacteria Rare Hyaline Casts 0-2 Urine Opiates Screen Urine Methadone Screen Ur Barbiturates Screen Ur Phencyclidine Scrn Ur Amphetamines Screen U Benzodiazepines Scrn U Oth Cocaine Metabols U Cannabinoids Screen Alcohol, Quantitative 07/23/18 07/23/18 23:40 23:40 WBC RBC Hgb Hct MCV MCH MCHC RDW Plt Count MPV Neut % (Auto) Lymph % (Auto) Holmes % (Auto) Eos % (Auto) Baso % (Auto) Neut # (Auto) Lymph # (Auto) Holmes # (Auto) Eos # (Auto) Baso # (Auto) Neutrophils % (Manual) Lymphocytes % (Manual) Monocytes % (Manual) Platelet Estimate RBC Morphology Sodium 137 Potassium 4.1 Chloride 98 Carbon Dioxide 19 L Anion Gap 25 H BUN 18 Creatinine 0.8 Est GFR ( Amer) > 60 Est GFR (Non-Af Amer) > 60 POC Glucose (mg/dL) Random Glucose 132 H Calcium 9.2 Total Bilirubin 0.6 AST 195 H D ALT 152 H D Alkaline Phosphatase 141 H Total Protein 7.9 Albumin 5.0 Globulin 2.9 Albumin/Globulin Ratio 1.7 Lipase 6103 H Urine Color Urine Clarity Urine pH Ur Specific Ava Urine Protein Urine Glucose (UA) Urine Ketones Urine Blood Urine Nitrate Urine Bilirubin Urine Urobilinogen Ur Leukocyte Esterase Urine WBC (Auto) Urine RBC (Auto) Urine Bacteria Hyaline Casts Urine Opiates Screen Negative Urine Methadone Screen Negative Ur Barbiturates Screen Negative Ur Phencyclidine Scrn Negative Ur Amphetamines Screen Negative U Benzodiazepines Scrn Negative U Oth Cocaine Metabols Negative U Cannabinoids Screen Negative Alcohol, Quantitative 201 H Assessment & Plan - Assessment and Plan (Free Text) Assessment: 27 yo male admitted for pancreatitis Plan: Pancreatitis NPO Elevated Lipase on labs CT abd/pelvis: full read pending IV fluids NS @ 150mls/hr; see ED course for fluid resuscitations Morphine 1 mg q4h prn Zofran 4mg q6h prn Advance diet as tolerated Etoh abuse Thiamine 100mg IV Folic acid 1mg IV Ativan 2mg ivp prn Transaminitis Trend CMP likely 2/2 recent alcohol use PGY-1 Elysia Small Case d/w Dr. Solares <Warren Solares - Last Filed: 07/24/18 06:21> Results - Vital Signs Recent Vital Signs: Last Vital Signs Temp 97.9 F 07/24/18 03:14 Pulse 75 07/24/18 03:14 Resp 18 07/24/18 03:24 BP 137/77 07/24/18 03:14 Pulse Ox 100 07/24/18 03:14 - Labs Result Diagrams: 07/23/18 23:40 07/23/18 23:40 Labs: Laboratory Results - last 24 hr 07/23/18 07/23/18 07/23/18 22:37 23:40 23:40 WBC 13.4 H D RBC 5.28 Hgb 17.4 D Hct 49.7 MCV 94.1 H MCH 33.0 H MCHC 35.1 RDW 13.3 Plt Count 288 MPV 8.7 Neut % (Auto) 88.2 H Lymph % (Auto) 6.5 L Holmes % (Auto) 5.1 Eos % (Auto) 0.0 Baso % (Auto) 0.2 Neut # (Auto) 11.8 H Lymph # (Auto) 0.9 L Holmes # (Auto) 0.7 Eos # (Auto) 0.0 Baso # (Auto) 0.0 Neutrophils % (Manual) 89 H Lymphocytes % (Manual) 6 L Monocytes % (Manual) 5 Platelet Estimate Normal RBC Morphology Normal Sodium Potassium Chloride Carbon Dioxide Anion Gap BUN Creatinine Est GFR ( Amer) Est GFR (Non-Af Amer) POC Glucose (mg/dL) 153 H Random Glucose Calcium Total Bilirubin AST ALT Alkaline Phosphatase Total Protein Albumin Globulin Albumin/Globulin Ratio Lipase Urine Color Yellow Urine Clarity Hazy Urine pH 5.0 Ur Specific Ava 1.020 Urine Protein 1+ H Urine Glucose (UA) Normal Urine Ketones Negative Urine Blood Negative Urine Nitrate Negative Urine Bilirubin Negative Urine Urobilinogen Normal Ur Leukocyte Esterase Neg Urine WBC (Auto) 1 Urine RBC (Auto) 1 Urine Bacteria Rare Hyaline Casts 0-2 Urine Opiates Screen Urine Methadone Screen Ur Barbiturates Screen Ur Phencyclidine Scrn Ur Amphetamines Screen U Benzodiazepines Scrn U Oth Cocaine Metabols U Cannabinoids Screen Alcohol, Quantitative 07/23/18 07/23/18 23:40 23:40 WBC RBC Hgb Hct MCV MCH MCHC RDW Plt Count MPV Neut % (Auto) Lymph % (Auto) Holmes % (Auto) Eos % (Auto) Baso % (Auto) Neut # (Auto) Lymph # (Auto) Holmes # (Auto) Eos # (Auto) Baso # (Auto) Neutrophils % (Manual) Lymphocytes % (Manual) Monocytes % (Manual) Platelet Estimate RBC Morphology Sodium 137 Potassium 4.1 Chloride 98 Carbon Dioxide 19 L Anion Gap 25 H BUN 18 Creatinine 0.8 Est GFR ( Amer) > 60 Est GFR (Non-Af Amer) > 60 POC Glucose (mg/dL) Random Glucose 132 H Calcium 9.2 Total Bilirubin 0.6 AST 195 H D ALT 152 H D Alkaline Phosphatase 141 H Total Protein 7.9 Albumin 5.0 Globulin 2.9 Albumin/Globulin Ratio 1.7 Lipase 6103 H Urine Color Urine Clarity Urine pH Ur Specific Ava Urine Protein Urine Glucose (UA) Urine Ketones Urine Blood Urine Nitrate Urine Bilirubin Urine Urobilinogen Ur Leukocyte Esterase Urine WBC (Auto) Urine RBC (Auto) Urine Bacteria Hyaline Casts Urine Opiates Screen Negative Urine Methadone Screen Negative Ur Barbiturates Screen Negative Ur Phencyclidine Scrn Negative Ur Amphetamines Screen Negative U Benzodiazepines Scrn Negative U Oth Cocaine Metabols Negative U Cannabinoids Screen Negative Alcohol, Quantitative 201 H Assessment & Plan - Date & Time Date: 07/24/18 (I have seen and examined the patient. I agree with the findings and plan of care as documented by Dr. Small. Patient with acute pancreatitis. Alcohol abuse. CIWA protocol. NPO. IVF. Symptomatic treatment. Monitor for acute changes.) Time: 06:20 Attending/Attestation - Attestation I have personally seen and examined this patient.: Yes I have fully participated in the care of the patient.: Yes I have reviewed all pertinent clinical information: Yes
[2018-07-24] MEDS: Sodium Chloride 0.9% 1,000 ML IV SCH ×3 (02:36→20:10)
[2018-07-24 07:16] LABS: ALB/GLOB RATIO 2.1 (1.0-2.1); ALBUMIN 4.4 g/dL (3.5-5.0); ALT/SGPT 122 U/L (21-72); AST/SGOT 154 U/L (17-59); BLOOD UREA NITROGEN 15 mg/dL (9-20); CALCIUM 7.9 mg/dl (8.6-10.4); GFR NON-AFRICAN AMERICAN > 60
[2018-07-24 07:51] LABS: BASO % 0.1 % (0.0-2.0); LYMPH # 0.5 K/uL (1.0-4.3); LYMPH % 3.1 % (20.0-40.0); MEAN CELL VOLUME 94.3 fL (80.0-94.0); MEAN CORPUSCULAR HEMOGLOBIN 32.4 pg (27.0-31.0); MEAN CORPUSCULAR HGB CONC 34.3 g/dL (33.0-37.0); MEAN PLATELET VOLUME 8.7 fL (7.2-11.7); MONO # 0.8 K/uL (0.0-0.8); NEUT # 15.3 K/uL (1.8-7.0); NEUT % 91.8 % (50.0-75.0); PLATELET COUNT 228 K/uL (130-400); RBC 4.65 Mil/uL (4.40-5.90); RED CELL DISTRIBUTION WIDTH 13.6 % (11.5-14.5); WHITE BLOOD COUNT 16.6 K/uL (4.8-10.8)
[2018-07-24 07:54] VITALS: RESP 20
--- NOTE | 2018-07-24 08:17 | CP.PCM.PN ---
<Roxana Hayes - Last Filed: 07/24/18 17:18> Subjective - Date & Time of Evaluation Date of Evaluation: 07/24/18 Time of Evaluation: 08:17 - Subjective Subjective: PGY-1 Roxana Hayes D.O. Medicine progress note for Dr. Noble's service: Patient was seen and examined this morning. Patient is complaining of diffuse abdominal pain. He says that he drinks a "whole bottle of whiskey" daily. He denies N/V/D/C. Objective - Vital Signs/Intake and Output Vital Signs (last 24 hours): Temp Pulse Resp BP Pulse Ox 98.5 F 89 20 158/88 H 97 07/24/18 07:47 07/24/18 07:47 07/24/18 07:47 07/24/18 07:47 07/24/18 07:47 - Medications Medications: Current Medications Folic Acid 1 mg/ Sodium (Chloride) 100.2 mls @ 60 mls/hr IV DAILY [facility] Last Admin: 07/24/18 02:43 Dose: 60 mls/hr Sodium Chloride (Sodium Chloride 0.9%) 1,000 mls @ 150 mls/hr IV .Q6H40M [facility] Last Admin: 07/24/18 02:36 Dose: 150 mls/hr Lorazepam (Ativan) 2 mg IVP Q6H PRN PRN Reason: Anxiety Morphine Sulfate (Morphine) 2 mg IVP Q4 PRN PRN Reason: Pain, moderate (4-7) Ondansetron HCl (Zofran Inj) 4 mg IVP Q6H PRN PRN Reason: nausea Last Admin: 07/24/18 02:34 Dose: 4 mg Pneumococcal Polyvalent Vaccine (Pneumovax 23 Vaccine) 0.5 ml IM .ONCE ONE Stop: 07/26/18 10:01 - Labs Labs: 07/24/18 06:56 07/24/18 06:56 - Constitutional Appears: Non-toxic, No Acute Distress - Head Exam Head Exam: ATRAUMATIC, NORMAL INSPECTION - Eye Exam Eye Exam: EOMI, Normal appearance - ENT Exam ENT Exam: Mucous Membranes Moist - Respiratory Exam Respiratory Exam: Clear to Ausculation Bilateral, NORMAL BREATHING PATTERN - Cardiovascular Exam Cardiovascular Exam: RRR, +S1, +S2 - GI/Abdominal Exam GI & Abdominal Exam: Guarding, Tenderness, Normal Bowel Sounds. absent: Distended - Extremities Exam Extremities Exam: Normal Inspection - Neurological Exam Neurological Exam: Alert, Awake, CN II-XII Intact, Oriented x3 - Psychiatric Exam Psychiatric exam: Normal Affect, Normal Mood - Skin Skin Exam: Dry, Normal Color, Warm Assessment and Plan - Assessment and Plan (Free Text) Assessment: Patient is a 27 yo male with alcohol use disorder who is admitted for acute pancreatitis. Plan: Pancreatitis, acute - [place]'s criteria on admission- 0 - Lipase 6103 - Repeat tomorrow - CT A/P: Findings consistent with acute uncomplicated pancreatitis. Hepatosplenomegaly. Fatty liver. - Abd US: Hepatosplenomegaly. Fatty infiltration of the liver. No evidence of cholelithiasis or biliary obstruction. - Lipid panel in AM - NPO - NS @ 150 cc/hr - Zofran 4 mg IV Q6H PRN - Morphine 4 mg IV Q4H Transaminitis, chronic- 2/2 alcohol use - AST 195--> 154, ALT 152--> 122 - Tbili wnl - HIV negative - Hepatitis panel negative in 03/2018 - CT A/P: Findings consistent with acute uncomplicated pancreatitis. Hepatosplenomegaly. Fatty liver. - Abd US: Hepatosplenomegaly. Fatty infiltration of the liver. No evidence of cholelithiasis or biliary obstruction. Alcohol use disorder, chronic - BAL 201 - UDS negative - CIWA (11) - Folate 1 mg IV daily - Ativan 2 mg IV Q6H PRN - Highly encouraged cessation - Referral to AA Ppx: VTE: SCDs GI: not indicated Diet: NPO Code status: full code Dispo: Hydrate and manage pain. Discharge home when diet advanced and no alcohol withdrawal symptoms. Case discussed with attending, Dr. Noble. <Samy Noble - Last Filed: 07/27/18 21:41> Objective - Vital Signs/Intake and Output Vital Signs (last 24 hours): Temp Pulse Resp BP Pulse Ox 98.2 F 86 20 127/86 96 07/27/18 07:36 07/27/18 07:36 07/27/18 07:36 07/27/18 07:36 07/27/18 07:36 - Labs Labs: 07/27/18 07:13 07/27/18 07:13 Attending/Attestation - Attestation I have personally seen and examined this patient.: Yes I have fully participated in the care of the patient.: Yes I have reviewed all pertinent clinical information, including history, physical exam and plan: Yes Notes (Text): seen and examined,has abdominal pain and tenderness.keep NPO and hydrate
--- NOTE | 2018-07-24 10:03 | US ---
Date of service: 07/24/2018 HISTORY: eval gallstones, liver COMPARISON: None. TECHNIQUE: Sonographic evaluation of the abdomen. FINDINGS: LIVER: Measures 24.1 cm. Diffusely increased echogenicity of the liver parenchyma. Consistent with fatty infiltration. Smooth contour. No mass. Normal hepatopetal portal venous flow. GALLBLADDER: Unremarkable. No gallstones. COMMON BILE DUCT: Measures 4 mm. No stones. No dilatation. PANCREAS: Obscured by bowel gas RIGHT KIDNEY: Measures 9.4cm. Normal echogenicity. No calculus, mass, or hydronephrosis. LEFT KIDNEY: Measures 11.1cm. Normal echogenicity. No calculus, mass, or hydronephrosis. SPLEEN: Mild splenomegaly. The spleen measures 13.1 cm in greatest dimension. No focal mass. AORTA: No aneurysmal dilatation. IVC: Unremarkable. OTHER FINDINGS: None. IMPRESSION: Hepatosplenomegaly. Fatty infiltration of the liver. No evidence of cholelithiasis or biliary obstruction.
[2018-07-24 11:28] LABS: LYMPHOCYTE 3 % (20-40); MONOCYTE 5 % (0-10); NEUTROPHIL 92 % (50-75); PLATELET ESTIMATE NORMAL (NORMAL); TOTAL CELLS COUNTED 100
[2018-07-24 11:29] LABS: ANISOCYTOSIS SLIGHT
[2018-07-24 11:30] LABS: TOXIC GRANULATION PRESENT
[2018-07-24] MEDS: Morphine 4 MG/ML VIAL IVP PRN ×3 (12:01→20:50)
--- NOTE | 2018-07-24 12:38 | CT ---
Date of service: 07/24/2018 PROCEDURE: CT Abdomen and Pelvis with contrast HISTORY: pancreatitis COMPARISON: 04/07/2018 TECHNIQUE: Contrast dose: 100 mL Visipaque 320 Radiation dose: Total exam DLP = 441.31 mGy-cm. This CT exam was performed using one or more of the following dose reduction techniques: Automated exposure control, adjustment of the mA and/or kV according to patient size, and/or use of iterative reconstruction technique. FINDINGS: LOWER THORAX: Unremarkable. LIVER: Hepatomegaly. The liver measures approximately 22 cm craniocaudal. Smooth contour. No mass. No biliary ductal dilatation. Diffusely diminished attenuation consistent with fatty infiltration. Portal vein and hepatic veins appear patent. GALLBLADDER AND BILE DUCTS: Unremarkable. PANCREAS: There is moderate peripancreatic fluid extending to the lesser sac and along the right and left paracolic gutter to the pelvis. Consistent with acute pancreatitis. No evidence of pancreatic necrosis or hemorrhagic pancreatitis. No pancreatic mass or ductal dilatation appreciated. SPLEEN: Mild splenomegaly. The spleen measures approximately 13.4 cm in greatest dimension. No mass. ADRENALS: Unremarkable. No mass. KIDNEYS AND URETERS: Unremarkable. No hydronephrosis. No solid mass. VASCULATURE: Unremarkable. No aortic aneurysm. No aortic atherosclerotic calcification or mural plaque present. BOWEL: Unremarkable. No obstruction. No gross mural thickening. APPENDIX: Normal appendix. PERITONEUM: Fluid in pericolic gutters and pelvis as described. LYMPH NODES: Unremarkable. No enlarged lymph nodes. BLADDER: Unremarkable. REPRODUCTIVE: Normal prostate BONES: No acute fracture. OTHER FINDINGS: None. IMPRESSION: Findings consistent with acute uncomplicated pancreatitis. Hepatosplenomegaly. Fatty liver. The preliminary findings for this examination were reported by [facility] at 1:59 a.m. on 07/24/2018.. There is concurrence of this report with the preliminary findings.
[2018-07-25] MEDS: Morphine 4 MG/ML VIAL IVP PRN ×2 (02:12→09:49)
[2018-07-25] MEDS: Sodium Chloride 0.9% 1,000 ML IV SCH ×3 (04:19→16:27)
--- NOTE | 2018-07-25 07:47 | CP.PCM.PN ---
<Roxana Hayes - Last Filed: 07/25/18 15:32> Subjective - Date & Time of Evaluation Date of Evaluation: 07/25/18 Time of Evaluation: 07:46 - Subjective Subjective: PGY-1 Roxana Hayes D.O. Medicine progress note for Dr. Noble's service: Patient was seen and examined this morning. Patient states that he feels better. He abdominal pain is now 3/10. He denies nausea and vomiting. He says he is a little hungry. He denies tremors. Objective - Vital Signs/Intake and Output Vital Signs (last 24 hours): Temp Pulse Resp BP Pulse Ox 99.8 F H 104 H 20 144/91 H 99 07/25/18 00:00 07/25/18 00:00 07/25/18 00:00 07/25/18 00:00 07/25/18 00:00 - Medications Medications: Current Medications Sodium Chloride (Sodium Chloride 0.9%) 1,000 mls @ 150 mls/hr IV .Q6H40M [facility] Last Admin: 07/25/18 04:19 Dose: 150 mls/hr Folic Acid 1 mg/ Sodium (Chloride) 100.2 mls @ 100 mls/hr IV DAILY [facility] Last Admin: 07/24/18 09:36 Dose: 100 mls/hr Lorazepam (Ativan) 2 mg IVP Q6H PRN PRN Reason: Anxiety Morphine Sulfate (Morphine) 4 mg IVP Q4 PRN PRN Reason: Pain, moderate (4-7) Last Admin: 07/25/18 02:12 Dose: 4 mg Ondansetron HCl (Zofran Inj) 4 mg IVP Q6H PRN PRN Reason: nausea Last Admin: 07/24/18 02:34 Dose: 4 mg Pneumococcal Polyvalent Vaccine (Pneumovax 23 Vaccine) 0.5 ml IM .ONCE ONE Stop: 07/26/18 10:01 - Labs Labs: 07/24/18 06:56 07/24/18 06:56 - Additional Findings Additional findings: - Constitutional Appears: Non-toxic, No Acute Distress - Head Exam Head Exam: ATRAUMATIC, NORMAL INSPECTION - Eye Exam Eye Exam: EOMI, Normal appearance - ENT Exam ENT Exam: Mucous Membranes Moist - Respiratory Exam Respiratory Exam: Clear to Auscultation Bilateral, NORMAL BREATHING PATTERN - Cardiovascular Exam Cardiovascular Exam: RRR, +S1, +S2 - GI/Abdominal Exam GI & Abdominal Exam: Mild Tenderness, Normal Bowel Sounds. absent: Distended, Guarding - Extremities Exam Extremities Exam: Normal Inspection - Neurological Exam Neurological Exam: Alert, Awake, CN II-XII Intact, Oriented x3 - Psychiatric Exam Psychiatric exam: Normal Affect, Normal Mood - Skin Skin Exam: Dry, Normal Color, Warm Assessment and Plan - Assessment and Plan (Free Text) Assessment: Patient is a 27 yo male with alcohol use disorder who is admitted for acute al coholic pancreatitis. Plan: Pancreatitis, acute - Panfilo's criteria on admission- 0 - Lipase 6103--> 822 - Leukocytosis improving (16.6-->11.6) - CT A/P: Findings consistent with acute uncomplicated pancreatitis. Hepatosplenomegaly. Fatty liver. - Abd US: Hepatosplenomegaly. Fatty infiltration of the liver. No evidence of cholelithiasis or biliary obstruction. - TG 298, choles 104, LDL 54, HDL 28 - Advance diet as tolerated - Clear liquid diet - NS @ 150 cc/hr - Zofran 4 mg IV Q6H PRN - Morphine 2 mg IV Q4H PRN Transaminitis, chronic, improving- 2/2 alcohol use - AST 195--> 90, ALT 152--> 79 - Tbili wnl - HIV negative - Hepatitis panel negative in 03/2018 - CT A/P: Findings consistent with acute uncomplicated pancreatitis. Hepatosplenomegaly. Fatty liver. - Abd US: Hepatosplenomegaly. Fatty infiltration of the liver. No evidence of cholelithiasis or biliary obstruction. Alcohol use disorder, chronic - BAL 201 - UDS negative - CIWA (0) - Multivitamin daily - Thiamine 100 mg PO daily - Folate 1 mg PO daily - Ativan 2 mg IV Q6H PRN - Highly encouraged cessation - Referral to AA Ppx: VTE: SCDs GI: not indicated Diet: Clear liquid Code status: full code Dispo: Hydrate and manage pain. Discharge home when diet advanced and no alcohol withdrawal symptoms. Case discussed with attending, Dr. Noble. <Samy Noble - Last Filed: 07/27/18 21:39> Objective - Vital Signs/Intake and Output Vital Signs (last 24 hours): Temp Pulse Resp BP Pulse Ox 98.2 F 86 20 127/86 96 07/27/18 07:36 07/27/18 07:36 07/27/18 07:36 07/27/18 07:36 07/27/18 07:36 - Labs Labs: 07/27/18 07:13 07/27/18 07:13 Attending/Attestation - Attestation I have personally seen and examined this patient.: Yes I have fully participated in the care of the patient.: Yes I have reviewed all pertinent clinical information, including history, physical exam and plan: Yes
[2018-07-25 08:01] LABS: ALB/GLOB RATIO 1.5 (1.0-2.1); ALBUMIN 3.5 g/dL (3.5-5.0); ALT/SGPT 79 U/L (21-72); AST/SGOT 90 U/L (17-59); BLOOD UREA NITROGEN 11 mg/dL (9-20); CALCIUM 8.1 mg/dl (8.6-10.4); GFR NON-AFRICAN AMERICAN > 60; HDL CHOLESTEROL 28 mg/dL (30-70); LIPASE 822 U/L (23-300)
[2018-07-25 08:09] LABS: LDL CHOLESTEROL 54 mg/dL (0-129)
[2018-07-25 08:14] LABS: BASO % 0.2 % (0.0-2.0); MONO # 0.4 K/uL (0.0-0.8); NEUT # 10.8 K/uL (1.8-7.0); RED CELL DISTRIBUTION WIDTH 12.8 % (11.5-14.5)
[2018-07-25 08:36] LABS: HEMOGLOBIN 14.1 g/dL (12.0-18.0); LYMPH # 0.4 K/uL (1.0-4.3); LYMPH % 3.7 % (20.0-40.0); MEAN CELL VOLUME 94.5 fL (80.0-94.0); MEAN CORPUSCULAR HEMOGLOBIN 32.8 pg (27.0-31.0); MEAN CORPUSCULAR HGB CONC 34.8 g/dL (33.0-37.0); MONO % 3.3 % (0.0-10.0); NEUT % 92.8 % (50.0-75.0); RBC 4.29 Mil/uL (4.40-5.90); WHITE BLOOD COUNT 11.6 K/uL (4.8-10.8)
[2018-07-25] MEDS: Magnesium Sulfate 1 gm in D5W 1 GM/100 ML BAG IVPB SCH ×2 (08:37→09:03)
[2018-07-25 09:10] LABS: PLATELET COUNT 118 K/uL (130-400)
[2018-07-25 10:51] LABS: BANDS 5 % (0-2); LYMPHOCYTE 5 % (20-40); MONOCYTE 1 % (0-10); NEUTROPHIL 89 % (50-75); TOTAL CELLS COUNTED 100
[2018-07-25 10:52] LABS: PLATELET ESTIMATE SLIGHTLY DECREASED (NORMAL)
[2018-07-25] MEDS: Multiple Vitamins Tab PO SCH (12:00)
[2018-07-26] MEDS: Sodium Chloride 0.9% 1,000 ML IV SCH ×6 (01:23→21:33)
--- NOTE | 2018-07-26 07:37 | CP.PCM.PN ---
<Paco Smart - Last Filed: 07/26/18 11:35> Subjective - Date & Time of Evaluation Date of Evaluation: 07/26/18 Time of Evaluation: 07:37 - Subjective Subjective: PGY-1 Medicine Progress Note for Dr. Salinas Patient seen and examined at bedside this AM. Continues to endorse epigastric abdominal pain as well as nausea but no vomiting reported. Patient also endorses visual hallucinations that began last night, also noted to have some mild tremor on exam. 12 pt ROS reviewed and otherwise negative. Objective - Vital Signs/Intake and Output Vital Signs (last 24 hours): Temp Pulse Resp BP Pulse Ox 98.2 F 99 H 20 148/97 H 97 07/26/18 00:00 07/26/18 00:00 07/26/18 00:00 07/26/18 00:00 07/26/18 00:00 Intake and Output: 07/26/18 07/26/18 06:59 18:59 Intake Total 300 Balance 300 - Medications Medications: Current Medications Folic Acid (Folic Acid) 1 mg PO DAILY [facility] Sodium Chloride (Sodium Chloride 0.9%) 1,000 mls @ 150 mls/hr IV .Q6H40M [facility] Last Admin: 07/26/18 01:24 Dose: Not Given Lorazepam (Ativan) 2 mg IVP Q6H PRN PRN Reason: Anxiety Last Admin: 07/26/18 02:26 Dose: 2 mg Morphine Sulfate (Morphine) 2 mg IVP Q4 PRN PRN Reason: Pain, moderate (4-7) Last Admin: 07/25/18 20:44 Dose: 2 mg Multivitamins (Hexavitamin) 1 tab PO DAILY [facility] Last Admin: 07/25/18 12:00 Dose: 1 tab Ondansetron HCl (Zofran Inj) 4 mg IVP Q6H PRN PRN Reason: nausea Last Admin: 07/24/18 02:34 Dose: 4 mg Pneumococcal Polyvalent Vaccine (Pneumovax 23 Vaccine) 0.5 ml IM .ONCE ONE Stop: 07/26/18 10:01 Thiamine HCl (Vitamin B1 Tab) 100 mg PO DAILY [facility] Last Admin: 07/25/18 13:04 Dose: 100 mg - Labs Labs: 07/25/18 07:35 07/25/18 07:35 - Constitutional Appears: No Acute Distress - Head Exam Head Exam: ATRAUMATIC, NORMAL INSPECTION, NORMOCEPHALIC - Eye Exam Eye Exam: EOMI, Normal appearance, PERRL - ENT Exam ENT Exam: Mucous Membranes Moist, Normal Exam - Neck Exam Neck Exam: Full ROM, Normal Inspection - Respiratory Exam Respiratory Exam: Clear to Ausculation Bilateral, NORMAL BREATHING PATTERN. a bsent: Accessory Muscle Use, Rales, Rhonchi, Wheezes, Respiratory Distress - Cardiovascular Exam Cardiovascular Exam: REGULAR RHYTHM, +S1, +S2 - GI/Abdominal Exam GI & Abdominal Exam: Soft, Tenderness (mild TTP epigastrium). absent: Distended, Firm, Guarding, Rigid, Rebound - Extremities Exam Extremities Exam: Full ROM, Normal Capillary Refill, Normal Inspection. absent: Calf Tenderness, Pedal Edema - Back Exam Back Exam: NORMAL INSPECTION - Neurological Exam Neurological Exam: Alert, Awake Additional comments: mild tremors noted on PE - Skin Skin Exam: Dry, Intact, Normal Color, Warm Assessment and Plan - Assessment and Plan (Free Text) Assessment: 27 yo male with alcohol use disorder who is admitted for acute alcoholic pancreatitis Plan: Acute Pancreatitis -patient afebrile -WBC 11.6->9.2 (07/26) -lipase 6103--> 822 -TG 298, choles 104, LDL 54, HDL 28 -CT abdomen/pelvis: Findings consistent with acute uncomplicated pancreatitis. Hepatosplenomegaly. Fatty liver. -Abd US: Hepatosplenomegaly. Fatty infiltration of the liver. No evidence of cholelithiasis or biliary obstruction. -Advance diet as tolerated -NS @ 150 cc/hr -Zofran 4 mg IV Q6H PRN -Morphine 2 mg IV Q4H PRN Transaminitis--resolved -likely 2/2 alcohol use -AST/ALT wnl (07/26) -Tbili wnl - HIV negative -Hepatitis panel negative in 03/2018 Alcohol use disorder, chronic -BAL 201 on admission -UDS negative -[facility] protocol -MV/thiamine/folate -Ativan 2 mg IV Q6H PRN PPx, Diet, Disposition -DVT ppx: scds -GI ppx: protonix 40 mg IVP daily -Diet: full liquid, advance as tolerated Case discussed with Dr. Rita Smart DO, PGY-1 <Lucho Salinas H - Last Filed: 07/26/18 14:48> Objective - Vital Signs/Intake and Output Vital Signs (last 24 hours): Temp Pulse Resp BP Pulse Ox 97.7 F 89 20 140/89 97 07/26/18 07:00 07/26/18 07:00 07/26/18 07:00 07/26/18 07:00 07/26/18 07:00 Intake and Output: 07/26/18 07/26/18 06:59 18:59 Intake Total 300 Balance 300 - Medications Medications: Current Medications Folic Acid (Folic Acid) 1 mg PO DAILY [facility] Last Admin: 07/26/18 09:29 Dose: 1 mg Sodium Chloride (Sodium Chloride 0.9%) 1,000 mls @ 150 mls/hr IV .Q6H40M [facility] Last Admin: 07/26/18 14:17 Dose: 150 mls/hr Lorazepam (Ativan) 2 mg IVP Q6H PRN PRN Reason: Anxiety Last Admin: 07/26/18 08:25 Dose: 2 mg Morphine Sulfate (Morphine) 2 mg IVP Q4 PRN PRN Reason: Pain, moderate (4-7) Last Admin: 07/25/18 20:44 Dose: 2 mg Multivitamins (Hexavitamin) 1 tab PO DAILY [facility] Last Admin: 07/26/18 09:29 Dose: 1 tab Ondansetron HCl (Zofran Inj) 4 mg IVP Q6H PRN PRN Reason: nausea Last Admin: 07/24/18 02:34 Dose: 4 mg Pantoprazole Sodium (Protonix Inj) 40 mg IVP DAILY [facility] Thiamine HCl (Vitamin B1 Tab) 100 mg PO DAILY [facility] Last Admin: 07/26/18 09:29 Dose: 100 mg - Labs Labs: 07/26/18 07:21 07/26/18 07:21 Attending/Attestation - Attestation I have personally seen and examined this patient.: Yes I have fully participated in the care of the patient.: Yes I have reviewed all pertinent clinical information, including history, physical exam and plan: Yes Notes (Text): 07/26/18 14:46 Medical attending: Patient was seen and examined by me - however the patient was not interested in talking to us. I told he we remembered the patient before from a previous similar alcohol / gonzales creatitis admission. He was intially very awake, however after some discussion he did not want to t alk any more At this time he is on NSS, pain medication, and also medication for alcohol withdrawl Lucho Salinas
[2018-07-26 07:45] LABS: BASO % 0.2 % (0.0-2.0); EOS # 0.1 K/uL (0.0-0.7); EOS % 0.6 % (0.0-4.0); HEMOGLOBIN 13.2 g/dL (12.0-18.0); LYMPH # 0.8 K/uL (1.0-4.3); LYMPH % 8.2 % (20.0-40.0); MEAN CELL VOLUME 93.5 fL (80.0-94.0); MEAN CORPUSCULAR HEMOGLOBIN 32.9 pg (27.0-31.0); MEAN CORPUSCULAR HGB CONC 35.2 g/dL (33.0-37.0); MEAN PLATELET VOLUME 9.2 fL (7.2-11.7); MONO # 0.4 K/uL (0.0-0.8); PLATELET COUNT 105 K/uL (130-400); RBC 4.01 Mil/uL (4.40-5.90); RED CELL DISTRIBUTION WIDTH 12.7 % (11.5-14.5); WHITE BLOOD COUNT 9.2 K/uL (4.8-10.8)
[2018-07-26 07:55] LABS: ALB/GLOB RATIO 1.3 (1.0-2.1); ALBUMIN 3.4 g/dL (3.5-5.0); ALT/SGPT 56 U/L (21-72); AST/SGOT 51 U/L (17-59); BLOOD UREA NITROGEN 8 mg/dL (9-20); CALCIUM 8.3 mg/dl (8.6-10.4); GFR NON-AFRICAN AMERICAN > 60
[2018-07-26 09:05] LABS: LYMPHOCYTE 7 % (20-40); MONOCYTE 4 % (0-10); NEUTROPHIL 89 % (50-75); PLATELET ESTIMATE SLIGHTLY DECREASED (NORMAL); TOTAL CELLS COUNTED 100
[2018-07-26] MEDS ORDERED: Potassium & Sodium Phosphate PO ONE (09:16)
[2018-07-26] MEDS: Multiple Vitamins Tab PO SCH (09:29)
[2018-07-26] MEDS ORDERED: Pneumococcal 23-Valent Vaccine IM ONE (10:00)
[2018-07-27] MEDS: Sodium Chloride 0.9% 1,000 ML IV SCH (04:33)
[2018-07-27 07:30] LABS: BASO % 0.4 % (0.0-2.0); EOS # 0.1 K/uL (0.0-0.7); EOS % 1.4 % (0.0-4.0); HEMOGLOBIN 12.6 g/dL (12.0-18.0); LYMPH # 0.9 K/uL (1.0-4.3); LYMPH % 14.2 % (20.0-40.0); MEAN CORPUSCULAR HEMOGLOBIN 33.4 pg (27.0-31.0); MEAN CORPUSCULAR HGB CONC 35.9 g/dL (33.0-37.0); MEAN PLATELET VOLUME 8.7 fL (7.2-11.7); MONO # 0.4 K/uL (0.0-0.8); MONO % 5.7 % (0.0-10.0); NEUT # 5.1 K/uL (1.8-7.0); NEUT % 78.3 % (50.0-75.0); RBC 3.78 Mil/uL (4.40-5.90); RED CELL DISTRIBUTION WIDTH 12.6 % (11.5-14.5); WHITE BLOOD COUNT 6.5 K/uL (4.8-10.8)
[2018-07-27 07:38] VITALS: BP 127/86; PULSE 86; TEMP 98.2; O2SAT 96
[2018-07-27 08:24] LABS: ALB/GLOB RATIO 1.3 (1.0-2.1); ALBUMIN 3.4 g/dL (3.5-5.0); ALT/SGPT 56 U/L (21-72); AST/SGOT 86 U/L (17-59); BLOOD UREA NITROGEN 9 mg/dL (9-20); CALCIUM 8.2 mg/dl (8.6-10.4); GFR NON-AFRICAN AMERICAN > 60
[2018-07-27] MEDS: Multiple Vitamins Tab PO SCH (09:34)
--- NOTE | 2018-07-27 09:52 | CP.PCM.DIS ---
<Paco Smart - Last Filed: 07/27/18 13:02> Provider - Provider Date of Admission: 07/24/18 02:04 Attending physician: Samy Noble MD Primary care physician: Non [facility] Provider Time Spent in preparation of Discharge (in minutes): 40 Diagnosis - Discharge Diagnosis (1) Acute pancreatitis Status: Acute (2) Alcohol abuse Status: Acute Hospital Course - Lab Results Lab Results: Micro Results 07/24/18 11:15 Blood-Venous Blood Culture - Preliminary NO GROWTH AFTER 48 HOURS 07/24/18 10:10 Blood-Venous Blood Culture - Preliminary NO GROWTH AFTER 48 HOURS Most Recent Lab Values WBC 6.5 K/uL (4.8-10.8) 07/27/18 07:13 RBC 3.78 Mil/uL (4.40-5.90) L 07/27/18 07:13 Hgb 12.6 g/dL (12.0-18.0) 07/27/18 07:13 Hct 35.1 % (35.0-51.0) 07/27/18 07:13 MCV 93.0 fL (80.0-94.0) 07/27/18 07:13 MCH 33.4 pg (27.0-31.0) H 07/27/18 07:13 MCHC 35.9 g/dL (33.0-37.0) 07/27/18 07:13 RDW 12.6 % (11.5-14.5) 07/27/18 07:13 Plt Count 154 K/uL (130-400) 07/27/18 07:13 MPV 8.7 fL (7.2-11.7) 07/27/18 07:13 Neut % (Auto) 78.3 % (50.0-75.0) H 07/27/18 07:13 Lymph % (Auto) 14.2 % (20.0-40.0) L 07/27/18 07:13 [place] % (Auto) 5.7 % (0.0-10.0) 07/27/18 07:13 Eos % (Auto) 1.4 % (0.0-4.0) 07/27/18 07:13 Baso % (Auto) 0.4 % (0.0-2.0) 07/27/18 07:13 Neut # (Auto) 5.1 K/uL (1.8-7.0) 07/27/18 07:13 Lymph # (Auto) 0.9 K/uL (1.0-4.3) L 07/27/18 07:13 Marion # (Auto) 0.4 K/uL (0.0-0.8) 07/27/18 07:13 Eos # (Auto) 0.1 K/uL (0.0-0.7) 07/27/18 07:13 Baso # (Auto) 0.0 K/uL (0.0-0.2) 07/27/18 07:13 Neutrophils % (Manual) 89 % (50-75) H 07/26/18 07:21 Band Neutrophils % 5 % (0-2) H 07/25/18 07:35 Lymphocytes % (Manual) 7 % (20-40) L 07/26/18 07:21 Monocytes % (Manual) 4 % (0-10) 07/26/18 07:21 Toxic Granulation Present 07/24/18 06:56 Platelet Estimate Slightly decreased (NORMAL) L 07/26/18 07:21 RBC Morphology Normal 07/25/18 07:35 Anisocytosis (manual) Slight 07/24/18 06:56 Sodium 135 mmol/L (132-148) 07/27/18 07:13 Potassium 3.3 mmol/L (3.6-5.2) L 07/27/18 07:13 Chloride 101 mmol/L (98-107) 07/27/18 07:13 Carbon Dioxide 23 mmol/L (22-30) 07/27/18 07:13 Anion Gap 15 (10-20) 07/27/18 07:13 BUN 9 mg/dL (9-20) 07/27/18 07:13 Creatinine 0.6 mg/dL (0.8-1.5) L 07/27/18 07:13 Est GFR ( Amer) > 60 07/27/18 07:13 Est GFR (Non-Af Amer) > 60 07/27/18 07:13 POC Glucose (mg/dL) 153 mg/dL (65-110) H 07/23/18 22:37 Random Glucose 127 mg/dL (75-110) H 07/27/18 07:13 Calcium 8.2 mg/dl (8.6-10.4) L 07/27/18 07:13 Phosphorus 2.2 mg/dL (2.5-4.5) L 07/27/18 07:13 Magnesium 2.1 mg/dL (1.6-2.3) 07/27/18 07:13 Total Bilirubin 0.8 mg/dL (0.2-1.3) 07/27/18 07:13 AST 86 U/L (17-59) H D 07/27/18 07:13 ALT 56 U/L (21-72) 07/27/18 07:13 Alkaline Phosphatase 146 U/L (38-126) H D 07/27/18 07:13 Total Protein 6.0 g/dL (6.3-8.3) L 07/27/18 07:13 Albumin 3.4 g/dL (3.5-5.0) L 07/27/18 07:13 Globulin 2.6 gm/dL (2.2-3.9) 07/27/18 07:13 Albumin/Globulin Ratio 1.3 (1.0-2.1) 07/27/18 07:13 Triglycerides 298 mg/dL (0-149) H 07/25/18 07:35 Cholesterol 104 mg/dL (0-199) 07/25/18 07:35 LDL Cholesterol Direct 54 mg/dL (0-129) 07/25/18 07:35 HDL Cholesterol 28 mg/dL (30-70) L 07/25/18 07:35 Lipase 822 U/L (23-300) H 07/25/18 07:35 Urine Color Yellow (YELLOW) 07/23/18 23:40 Urine Clarity Hazy (Clear) 07/23/18 23:40 Urine pH 5.0 (5.0-8.0) 07/23/18 23:40 Ur Specific [place] 1.020 (1.003-1.030) 07/23/18 23:40 Urine Protein 1+ mg/dL (NEGATIVE) H 07/23/18 23:40 Urine Glucose (UA) Normal mg/dL (Normal) 07/23/18 23:40 Urine Ketones Negative mg/dL (NEGATIVE) 07/23/18 23:40 Urine Blood Negative (NEGATIVE) 07/23/18 23:40 Urine Nitrate Negative (NEGATIVE) 07/23/18 23:40 Urine Bilirubin Negative (NEGATIVE) 07/23/18 23:40 Urine Urobilinogen Normal mg/dL (0.2-1.0) 07/23/18 23:40 Ur Leukocyte Esterase Neg Veronica/uL (Negative) 07/23/18 23:40 Urine WBC (Auto) 1 /hpf (0-5) 07/23/18 23:40 Urine RBC (Auto) 1 /hpf (0-3) 07/23/18 23:40 Urine Bacteria Rare (<OCC) 07/23/18 23:40 Hyaline Casts 0-2 /lpf (0-2) 07/23/18 23:40 Urine Opiates Screen Negative (NEGATIVE) 07/23/18 23:40 Urine Methadone Screen Negative (NEGATIVE) 07/23/18 23:40 Ur Barbiturates Screen Negative (NEGATIVE) 07/23/18 23:40 Ur Phencyclidine Scrn Negative (NEGATIVE) 07/23/18 23:40 Ur Amphetamines Screen Negative (NEGATIVE) 07/23/18 23:40 U Benzodiazepines Scrn Negative (NEGATIVE) 07/23/18 23:40 U Oth Cocaine Metabols Negative (NEGATIVE) 07/23/18 23:40 U Cannabinoids Screen Negative (NEGATIVE) 07/23/18 23:40 Alcohol, Quantitative 201 mg/dl (0-10) H 07/23/18 23:40 HIV 1&2 Antibody Screen Negative (NEGATIVE) 07/24/18 11:15 - Hospital Course Hospital Course: HPI: Patient is a 27 yo male w/PMH of alcohol abuse presents to ED for abdominal pain. States he drank a bottle of whiskey yesterday by himself. Woke up this morning with sharp diffuse abdominal pain, characterized as sharp, non- radiating, with 4-5 episodes of nausea with vomiting NBNB. Admits to palpitations with abdominal pain. States he had similar episode about 3 months at [facility] requiring hospitilization as well. Denies cp, sob, constipation or diarrhea, and dysuria. The following is a summary of hospital course. For full detail, please refer to EMR: Acute Pancreatitis -patient afebrile -WBC 11.6->9.2 (07/26) -lipase 6103--> 822 -TG 298, choles 104, LDL 54, HDL 28 -CT abdomen/pelvis: Findings consistent with acute uncomplicated pancreatitis. Hepatosplenomegaly. Fatty liver. -Abd US: Hepatosplenomegaly. Fatty infiltration of the liver. No evidence of cholelithiasis or biliary obstruction. -Advance diet as tolerated -NS @ 150 cc/hr -Zofran 4 mg IV Q6H PRN -Morphine 2 mg IV Q4H PRN Transaminitis--resolved -likely 2/2 alcohol use -AST/ALT wnl (07/26) -Tbili wnl - HIV negative -Hepatitis panel negative in 03/2018 Alcohol use disorder, chronic -BAL 201 on admission -UDS negative -[facility] protocol -MV/thiamine/folate -Ativan 2 mg IV Q6H PRN PPx, Diet, Disposition -DVT ppx: scds -GI ppx: protonix 40 mg IVP daily -Diet: Heart Healthy Diet On discharge: Patient is medically stable for discharge to home, as per Dr. Salinas. He is instr ucted to take all medications as prescribed. Alcohol cessation has been provided. Please follow up at the [facility] within 1 week of discharge for further monitoring and continued care. Contact information has been provided. Please call [place] [address] If symptoms worsen or persist, please return to ED immediately. - Date & Time of H&P Date of H&P: 07/27/18 Time of H&P: 13:03 Discharge Exam - Head Exam Head Exam: ATRAUMATIC, NORMAL INSPECTION, NORMOCEPHALIC - Eye Exam Eye Exam: EOMI, Normal appearance Pupil Exam: NORMAL ACCOMODATION - ENT Exam ENT Exam: Mucous Membranes Moist, Normal Exam - Neck Exam Neck exam: Full Rom, Normal Inspection - Respiratory Exam Respiratory Exam: Clear to PA & Lateral, NORMAL BREATHING PATTERN, UNREMARKABLE. absent: Accessory Muscle Use, Rhonchi, Wheezes, Respiratory Distress, Stridor - Cardiovascular Exam Cardiovascular Exam: REGULAR RHYTHM, +S1, +S2 - GI/Abdominal Exam GI & Abdominal Exam: Normal Bowel Sounds, Soft, Unremarkable. absent: Distended, Firm, Guarding, Rebound, Rigid, Tenderness - Extremities Exam Extremities exam: normal capillary refill, normal inspection, pedal pulses present - Back Exam Back exam: NORMAL INSPECTION - Neurological Exam Neurological exam: Alert, CN II-XII Intact, Oriented x3 Additional comments: no tremors noted - Skin Skin Exam: Dry, Intact, Normal Color, Warm Discharge Plan - Discharge Medications Prescriptions: Folic Acid 1 mg PO DAILY #30 tab Multivitamins [Hexavitamin] 1 tab PO DAILY #30 tab Thiamine [Vitamin B1 Tab] 100 mg PO DAILY #30 tab - Follow Up Plan Disposition: HOME/ ROUTINE Instructions: Pancreatitis (DC), Alcohol Withdrawal (DC), Folic Acid, Thiamine Additional Instructions: Patient is medically stable for discharge to home, as per Dr. Salinas. He is instructed to take all medications as prescribed. Alcohol cessation has been provided. Please follow up at the [facility] within 1 week of discharge for further monitoring and continued care. Contact information has been provided. Please call to schedule an appointment. [facility] [address] If symptoms worsen or persist, please return to ED immediately. El paciente se encuentra mdicamente estable para el rg hospitalaria, segn el Dr. Salinas. Se le indica que tome todos los medicamentos segn lo prescrito. Se banks proporcionado cese de alcohol. Realice un seguimiento en el [facility] en [facility] dentro de la primera semana despus del rg para un seguimiento y anisha atencin continuada. Se banks proporcionado informacin de contacto. Favor de llamar para hacer anisha jaki. [facility] [place] [address] Telfono: [phone] Si los sntomas empeoran o persisten, regrese a la DE de inmediato. Referrals: Non [facility] Provider, [Primary Care Provider] - <Lucho Salinas - Last Filed: 07/27/18 15:10> Provider - Provider Date of Admission: 07/24/18 02:04 Attending physician: Samy Noble MD Primary care physician: Non [facility] Provider Hospital Course - Lab Results Lab Results: Micro Results 07/24/18 11:15 Blood-Venous Blood Culture - Preliminary NO GROWTH AFTER 3 DAYS 07/24/18 10:10 Blood-Venous Blood Culture - Preliminary NO GROWTH AFTER 3 DAYS Most Recent Lab Values WBC 6.5 K/uL (4.8-10.8) 07/27/18 07:13 RBC 3.78 Mil/uL (4.40-5.90) L 07/27/18 07:13 Hgb 12.6 g/dL (12.0-18.0) 07/27/18 07:13 Hct 35.1 % (35.0-51.0) 07/27/18 07:13 MCV 93.0 fL (80.0-94.0) 07/27/18 07:13 MCH 33.4 pg (27.0-31.0) H 07/27/18 07:13 MCHC 35.9 g/dL (33.0-37.0) 07/27/18 07:13 RDW 12.6 % (11.5-14.5) 07/27/18 07:13 Plt Count 154 K/uL (130-400) 07/27/18 07:13 MPV 8.7 fL (7.2-11.7) 07/27/18 07:13 Neut % (Auto) 78.3 % (50.0-75.0) H 07/27/18 07:13 Lymph % (Auto) 14.2 % (20.0-40.0) L 07/27/18 07:13 Marion % (Auto) 5.7 % (0.0-10.0) 07/27/18 07:13 Eos % (Auto) 1.4 % (0.0-4.0) 07/27/18 07:13 Baso % (Auto) 0.4 % (0.0-2.0) 07/27/18 07:13 Neut # (Auto) 5.1 K/uL (1.8-7.0) 07/27/18 07:13 Lymph # (Auto) 0.9 K/uL (1.0-4.3) L 07/27/18 07:13 Marion # (Auto) 0.4 K/uL (0.0-0.8) 07/27/18 07:13 Eos # (Auto) 0.1 K/uL (0.0-0.7) 07/27/18 07:13 Baso # (Auto) 0.0 K/uL (0.0-0.2) 07/27/18 07:13 Neutrophils % (Manual) 89 % (50-75) H 07/26/18 07:21 Band Neutrophils % 5 % (0-2) H 07/25/18 07:35 Lymphocytes % (Manual) 7 % (20-40) L 07/26/18 07:21 Monocytes % (Manual) 4 % (0-10) 07/26/18 07:21 Toxic Granulation Present 07/24/18 06:56 Platelet Estimate Slightly decreased (NORMAL) L 07/26/18 07:21 RBC Morphology Normal 07/25/18 07:35 Anisocytosis (manual) Slight 07/24/18 06:56 Sodium 135 mmol/L (132-148) 07/27/18 07:13 Potassium 3.3 mmol/L (3.6-5.2) L 07/27/18 07:13 Chloride 101 mmol/L (98-107) 07/27/18 07:13 Carbon Dioxide 23 mmol/L (22-30) 07/27/18 07:13 Anion Gap 15 (10-20) 07/27/18 07:13 BUN 9 mg/dL (9-20) 07/27/18 07:13 Creatinine 0.6 mg/dL (0.8-1.5) L 07/27/18 07:13 Est GFR ( Amer) > 60 07/27/18 07:13 Est GFR (Non-Af Amer) > 60 07/27/18 07:13 POC Glucose (mg/dL) 153 mg/dL (65-110) H 07/23/18 22:37 Random Glucose 127 mg/dL (75-110) H 07/27/18 07:13 Calcium 8.2 mg/dl (8.6-10.4) L 07/27/18 07:13 Phosphorus 2.2 mg/dL (2.5-4.5) L 07/27/18 07:13 Magnesium 2.1 mg/dL (1.6-2.3) 07/27/18 07:13 Total Bilirubin 0.8 mg/dL (0.2-1.3) 07/27/18 07:13 AST 86 U/L (17-59) H D 07/27/18 07:13 ALT 56 U/L (21-72) 07/27/18 07:13 Alkaline Phosphatase 146 U/L (38-126) H D 07/27/18 07:13 Total Protein 6.0 g/dL (6.3-8.3) L 07/27/18 07:13 Albumin 3.4 g/dL (3.5-5.0) L 07/27/18 07:13 Globulin 2.6 gm/dL (2.2-3.9) 07/27/18 07:13 Albumin/Globulin Ratio 1.3 (1.0-2.1) 07/27/18 07:13 Triglycerides 298 mg/dL (0-149) H 07/25/18 07:35 Cholesterol 104 mg/dL (0-199) 07/25/18 07:35 LDL Cholesterol Direct 54 mg/dL (0-129) 07/25/18 07:35 HDL Cholesterol 28 mg/dL (30-70) L 07/25/18 07:35 Lipase 176 U/L (23-300) 07/27/18 07:13 Urine Color Yellow (YELLOW) 07/23/18 23:40 Urine Clarity Hazy (Clear) 07/23/18 23:40 Urine pH 5.0 (5.0-8.0) 07/23/18 23:40 Ur Specific [place] 1.020 (1.003-1.030) 07/23/18 23:40 Urine Protein 1+ mg/dL (NEGATIVE) H 07/23/18 23:40 Urine Glucose (UA) Normal mg/dL (Normal) 07/23/18 23:40 Urine Ketones Negative mg/dL (NEGATIVE) 07/23/18 23:40 Urine Blood Negative (NEGATIVE) 07/23/18 23:40 Urine Nitrate Negative (NEGATIVE) 07/23/18 23:40 Urine Bilirubin Negative (NEGATIVE) 07/23/18 23:40 Urine Urobilinogen Normal mg/dL (0.2-1.0) 07/23/18 23:40 Ur Leukocyte Esterase Neg Veronica/uL (Negative) 07/23/18 23:40 Urine WBC (Auto) 1 /hpf (0-5) 07/23/18 23:40 Urine RBC (Auto) 1 /hpf (0-3) 07/23/18 23:40 Urine Bacteria Rare (<OCC) 07/23/18 23:40 Hyaline Casts 0-2 /lpf (0-2) 07/23/18 23:40 Urine Opiates Screen Negative (NEGATIVE) 07/23/18 23:40 Urine Methadone Screen Negative (NEGATIVE) 07/23/18 23:40 Ur Barbiturates Screen Negative (NEGATIVE) 07/23/18 23:40 Ur Phencyclidine Scrn Negative (NEGATIVE) 07/23/18 23:40 Ur Amphetamines Screen Negative (NEGATIVE) 07/23/18 23:40 U Benzodiazepines Scrn Negative (NEGATIVE) 07/23/18 23:40 U Oth Cocaine Metabols Negative (NEGATIVE) 07/23/18 23:40 U Cannabinoids Screen Negative (NEGATIVE) 07/23/18 23:40 Alcohol, Quantitative 201 mg/dl (0-10) H 07/23/18 23:40 HIV 1&2 Antibody Screen Negative (NEGATIVE) 07/24/18 11:15 Attending/Attestation - Attestation I have personally seen and examined this patient.: Yes I have fully participated in the care of the patient.: Yes I have reviewed all pertinent clinical information, including history, physical exam and plan: Yes Notes (Text): 07/27/18 15:09 Medical attending: Patient was seen and examined by me. Agree with the above note by the resident The patient was not in any acute distress, he reported that the abdominal pain was very minimal now He reports he has had a BM, urination is fine as well He did not have shaking or tremors We had again another long discussion about the alcohol use. This is the patient's second time I have met him because of alcohol use Lucho Salinas
--- NOTE | 2018-07-27 09:52 | CP.PCM.PN ---
Subjective - Date & Time of Evaluation Date of Evaluation: 07/27/18 Time of Evaluation: 09:52 Objective - Vital Signs/Intake and Output Vital Signs (last 24 hours): Temp Pulse Resp BP Pulse Ox 98.2 F 86 20 127/86 96 07/27/18 07:36 07/27/18 07:36 07/27/18 07:36 07/27/18 07:36 07/27/18 07:36 Intake and Output: 07/27/18 07/27/18 06:59 18:59 Intake Total 250 Balance 250 - Medications Medications: Current Medications Folic Acid (Folic Acid) 1 mg PO DAILY [facility] Last Admin: 07/27/18 09:34 Dose: 1 mg Sodium Chloride (Sodium Chloride 0.9%) 1,000 mls @ 150 mls/hr IV .Q6H40M [facility] Last Admin: 07/27/18 04:33 Dose: 150 mls/hr Lorazepam (Ativan) 2 mg IVP Q6H PRN PRN Reason: Anxiety Last Admin: 07/26/18 21:33 Dose: 2 mg Morphine Sulfate (Morphine) 2 mg IVP Q4 PRN PRN Reason: Pain, moderate (4-7) Last Admin: 07/27/18 06:51 Dose: 2 mg Multivitamins (Hexavitamin) 1 tab PO DAILY [facility] Last Admin: 07/27/18 09:34 Dose: 1 tab Ondansetron HCl (Zofran Inj) 4 mg IVP Q6H PRN PRN Reason: nausea Last Admin: 07/24/18 02:34 Dose: 4 mg Pantoprazole Sodium (Protonix Inj) 40 mg IVP DAILY [facility] Last Admin: 07/27/18 09:34 Dose: 40 mg Potassium Chloride (K-Dur 20 Meq Er Tab) 40 meq PO ONCE ONE Stop: 07/27/18 10:01 Potassium Phos/Sodium Phos (Neutra-Phos) 1 pkt PO ONCE ONE Stop: 07/27/18 10:01 Thiamine HCl (Vitamin B1 Tab) 100 mg PO DAILY [facility] Last Admin: 07/27/18 09:34 Dose: 100 mg - Labs Labs: 07/27/18 07:13 07/27/18 07:13
[2018-07-27] MEDS ORDERED: Potassium Chloride 20 mEq ER Tab PO ONE (10:00)
[2018-07-27] MEDS ORDERED: Potassium & Sodium Phosphate PO ONE (10:00)
[2018-07-27 11:31] LABS: LIPASE 176 U/L (23-300)
== END 2018-07-27 14:27 | disposition home or self-care (01) | DRG 440 ==
LOC: C.ER 22:07 → SUPCPDRO 22:07 → C.9E 07-24 02:04 → C.3T 07-24 02:39
PROVIDERS: ADMIT Internal Medicine; ATTEND Internal Medicine
DX: K85.20 Alcohol induced acute pancreatitis without necrosis or infection (principal); F10.120 Alcohol abuse with intoxication, uncomplicated; Y90.7 Blood alcohol level of 200-239 mg/100 ml; J45.909 Unspecified asthma, uncomplicated; K76.0 Fatty (change of) liver, not elsewhere classified